=== PATIENT | female | born 2000 | race Caucasian/White ===

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

== ENCOUNTER 2022-06-03 11:25 | Outpatient (CLI) | payer MEDICAID, SELFPAY ==
--- NOTE | 2022-06-03 11:39 | XR_ITS ---
WS: [id number] EXAMINATION: XR foot RT 2V [id number] REASON FOR EXAM: RT FOOT PAIN COMPARISON: None available. ORDER DATE: 06/03/2022 11:39 AM X-RAY FINDINGS: There are no fractures or dislocations. No focal abnormal soft tissue swelling. Joint spaces are pres erved. XR/XR foot RT 2V [id number] IMPRESSION: No fractures or dislocations of the right foot.
== END 2022-06-03 11:26 | disposition home or self-care (01) ==
PROVIDERS: PCP Nurse Practitioner Family; Visit Provider Nurse Practitioner Family
DX: M79.671 Pain in right foot (principal)
CPT/HCPCS: 73620

== ENCOUNTER 2022-09-12 15:37 | Emergency (ER) | payer MEDICAID, SELFPAY ==
[2022-09-12 16:14] VITALS: BP 115/81; PULSE 94; RESP 16; TEMP 36.7; O2SAT 98; BMI 29.9
--- NOTE | 2022-09-12 16:25 | PC.PHAR ---
pt states she is only using the albuterol inhaler and ibu prn-ext shows [id number] one tab daily filled 08/24/22 28d/s pt states she hasnt taken for a month-ext also shows m-karma plus daily filled 08/24/22 30d/s pt states not taking-
--- NOTE | 2022-09-12 16:31 | CTR_ITS ---
PROCEDURE INFORMATION: Exam: CT Cervical Spine Without Contrast Exam date and time: 09/12/2022 4:44 PM Age: 21 years old Clinical indication: Injury or trauma; Fall; Blunt trauma; Additional info: Fall neck pain TECHNIQUE: Imaging protocol: Computed tomography of the cervical spine without contrast. Radiation optimization: All CT scans at this facility use at least one of these dose optimization techniques: automated exposure control; mA and/or kV adjustment per patient size (includes targeted exams where dose is matched to clinical indication); or iterative reconstruction. REPORTING DATA: Count of CT and Cardiac NM exams in prior 12 months: This patient has received 0 known CTs and 0 known cardiac nuclear medicine studies in the 12 months prior to the current study. COMPARISON: CR XR cervical spine 3V* [id number] 08/25/2019 7:38 PM RADIATION DOSE METRICS: Total DLP (mGy-cm): 152.7 FINDINGS: Bones/joints: No acute fracture. Near anatomic alignment. No severe spinal canal stenosis. Lungs: Lung apices are normal. Soft tissues: Unremarkable. CT/CT cervical spin wo con* [id number] IMPRESSION: No acute osseous injury.
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
[2022-09-12 17:53] VITALS: BP 115/81; PULSE 94; RESP 16; TEMP 36.7; O2SAT 98
== END 2022-09-12 17:55 | disposition home or self-care (01) ==
PROVIDERS: Emergency Provider Emergency Medicine; PCP Nurse Practitioner Family
DX: S00.83XA Contusion of other part of head, initial encounter (principal); S16.1XXA Strain of muscle, fascia and tendon at neck level, initial encounter; Z91.81 History of falling; Y93.11 Activity, swimming; Y92.34 Swimming pool (public) as the place of occurrence of the external cause; W16.522A Jumping or diving into swimming pool striking bottom causing other injury, initial encounter
CPT/HCPCS: 70486; 72125; 99284

== ENCOUNTER 2022-11-09 10:49 | Outpatient (CLI) | payer MEDICAID, SELFPAY ==
--- NOTE | 2022-11-09 11:03 | XR_ITS ---
WS: [id number] XR knee LT 3V* [id number] REASON FOR EXAM: LEFT KNEE PAIN, UNSPECIFIED CHRONICITY FINDINGS: No fracture or focal bone lesion. The joint spaces of the left knee are intact and well preserved. No soft tissue abnormality. IMPRESSION: No significant abnormality.
== END 2022-11-09 10:50 | disposition home or self-care (01) ==
PROVIDERS: PCP Nurse Practitioner Family; Visit Provider Nurse Practitioner Family
DX: M25.562 Pain in left knee (principal)
CPT/HCPCS: 73562

== ENCOUNTER 2023-02-19 19:07 | Emergency (ER) | payer MEDICAID, SELFPAY ==
--- NOTE | 2023-02-19 19:10 | XRR_ITS ---
PROCEDURE INFORMATION: Exam: XR Chest Exam date and time: 02/19/2023 7:19 PM Age: 22 years old Clinical indication: Prior surgery; Surgery date: 6+ months; Surgery type: Esophageal banding; Patient HX: Cough; Chest pain; Flushed; HX esophogeal banding TECHNIQUE: Imaging protocol: Radiologic exam of the chest. Views: 1 view. COMPARISON: CR XR chest 2V* [id number] 02/01/2019 7:16 PM FINDINGS: Lungs: Unremarkable. No consolidation. Pleural spaces: Unremarkable. No pleural effusion. No pneumothorax. Heart/Mediastinum: Unremarkable. No cardiomegaly. Bones/joints: Unremarkable. XR/XR chest 1V portable [id number] IMPRESSION: No acute findings.
--- NOTE | 2023-02-19 19:10 | ECG_ITS ---
[facility] Test Date: 2023-02-19 Pat Name: Joy Olivera Department: Room: Gender: Female Soa Integration Developer: : 2000 Requested By: Syed Keyes Order Number: [id number] Stephanie MD: Abel Graham M.D. Measurements Intervals [place] Rate: 80 P: 31 HI: 143 QRS: 35 QRSD: 82 T: 16 QT: 352 QTc: 408 Interpretive Statements SINUS RHYTHM No previous ECG available for comparison Electronically Signed On 02-20-2023 8:35:55 STEAM HAMMER OPERATOR by Abel Graham M.D. [id number]
[2023-02-19 19:41] VITALS: BP 134/89; PULSE 80; RESP 18; TEMP 36.6; O2SAT 98; BMI 32.8
--- NOTE | 2023-02-19 21:04 | W.ED.CHESTPA ---
HPI - Chest Pain General: Chief Complaint: Chest Pain Stated Complaint: chest pains Time Seen by Provider: 02/19/23 19:19 Source: patient Mode of arrival: ambulatory Limitations: no limitations History of Present Illness: 22-year-old female states she been having sharp chest pains in the center of her chest over the last week she states she also has had some shortness of breath. States the pain is worse with palpation along with deep breaths then. She had a slight cough denies any fevers denies any vomiting or diarrhea. Associated symptoms: Reports dyspnea; Deny abdominal pain, fever(s), nausea or vomiting Review of Systems Const: Denies: fever(s), chills, body aches or change in appetite ENMT: Denies: throat pain or dental pain Card: Reports: chest pain Resp: Reports: dyspnea GI: Denies: abdominal pain, nausea, vomiting or diarrhea : Denies: dysuria Musc: Denies: neck pain or back pain Skin/Breast: Denies: rash Neuro: Denies: headache(s) ON LICENSE OF [facility] ED Female Reproductive History: Date of last menstrual period: 02/02/23 Physical Exam Const: COMMON NORMALS: no acute distress, patient oriented x3 and healthy appearing HENMT: COMMON NORMALS: normocephalic and atraumatic HEAD & SCALP: normocephalic and atraumatic Eye: COMMON NORMALS: Equal, round and reactive pupils present and EOMs intact bilaterally PUPIL: Yes Equal, round and reactive pupils present Neck/C-Spine: COMMON NORMALS: full ROM and supple Chest: COMMONS NORMALS: normal inspection of the chest OTHER: point tender in center of chest Resp: COMMON NORMALS: normal respiratory effort, No retractions, No use of accessory muscles and clear to auscultation bilaterally AUSCULTATION: clear to auscultation bilaterally Cardio: COMMON NORMALS: regular rate, regular rhythm and No murmurs present (Cardio) RATE: regular rate RHYTHM: regular rhythm Extremity: COMMON NORMALS: normal to inspection and full ROM Neuro: COMMON NORMALS: patient oriented x3, moves all extremities and no focal motor deficits Psych: COMMON NORMALS: mental status grossly normal, Normal thought process present and cooperative THOUGHT PROCESS: Normal thought process present Skin: COMMON NORMALS: no rashes or lesions noted and no wounds GENERAL SKIN EXAM: no rashes or lesions noted Course Vital Signs: Vital signs: Vital Signs Temperature 98 F 02/19/23 19:41 Pulse Rate 80 02/19/23 19:41 Respiratory Rate 18 02/19/23 19:41 Blood Pressure 134/89 02/19/23 19:41 Pulse Oximetry 98 02/19/23 19:41 Oxygen Delivery Me thod Room Air 02/19/23 19:41 MDM - Chest Pain Medical Decision Making Patient presents for chest pain is likely chest wall pain she is point tender her troponin or D-dimer here is negative she does have a slight leukocytosis but has been on steroids likely causing this no signs of pneumonia on her x-ray she is stable for discharge she is follow-up with PCP and return if worsening Medical Records I reviewed the patient's medical records. Lab Data I reviewed the patient's lab results. 02/19/23 21:18 02/19/23 21:18 Radiology Impressions Chest X-Ray 02/19/23 19:10 IMPRESSION: No acute findings. Laboratory Results WBC 18.77 10^3/uL (4.5-13.0) H 02/19/23 21:18 RBC 4.21 10^6/uL (3.85-5.65) 02/19/23 21:18 Hgb 12.50 g/dL (12.4-14.8) 02/19/23 21:18 Hct 36.9 % (36-47) 02/19/23 21:18 MCV 87.6 fl (85-98) 02/19/23 21:18 MCH 29.7 pg (27-33) 02/19/23 21:18 MCHC 33.9 g/dL (30-55) 02/19/23 21:18 RDW 12.3 % (12.1-15.1) 02/19/23 21:18 Plt Count 316 10^3/cmm (157-399) 02/19/23 21:18 MPV 9.9 fL (7.4-10.4) 02/19/23 21:18 Neut % (Auto) 78.7 % 02/19/23 21:18 Lymph % (Auto) 13.8 % 02/19/23 21:18 [place] % (Auto) 6.2 % 02/19/23 21:18 Eos % (Auto) 0.3 % 02/19/23 21:18 Baso % (Auto) 0.3 % 02/19/23 21:18 Neut # (Auto) 14.79 10^3/uL (1.8-8.0) H 02/19/23 21:18 Lymph # (Auto) 2.6 10^3/uL (1.5-6.5) 02/19/23 21:18 [place] # (Auto) 1.2 10^3/uL (0.2-0.9) H 02/19/23 21:18 Eos # (Auto) 0.1 10^3/uL (0.0-0.8) 02/19/23 21:18 Baso # (Auto) 0.1 10^3/uL (0.0-0.1) 02/19/23 21:18 Nucleated RBC % (auto) 0 % 02/19/23 21:18 Nucleated RBCs # 0.0 /100WBC 02/19/23 21:18 D-Dimer <= 0.27 ug/mLFEU (0-0.59) 02/19/23 21:18 Sodium 140 mmol/L (136-145) 02/19/23 21:18 Potassium 3.9 mmol/L (3.5-5.1) 02/19/23 21:18 Chloride 107 mmol/L (98-107) 02/19/23 21:18 Carbon Dioxide 24 mmol/L (22-29) 02/19/23 21:18 Anion Gap 12.9 (5-19) 02/19/23 21:18 BUN 12 mg/dL (6-20) 02/19/23 21:18 Creatinine 0.6 mg/dL (0.5-0.9) 02/19/23 21:18 GFR Calculation 127.5 mL/min (90-130) 02/19/23 21:18 Glucose 97 mg/dL (65-115) 02/19/23 21:18 Calculated Osmolality 290 mOsm/kg (285-295) 02/19/23 21:18 Calcium 9.6 mg/dL (8.5-10.5) 02/19/23 21:18 Total Bilirubin 0.2 mg/dL (0.15-1.2) 02/19/23 21:18 AST 8 U/L (0-32) 02/19/23 21:18 ALT 10 U/L (0-33) 02/19/23 21:18 Alkaline Phosphatase 62 U/L (35-105) 02/19/23 21:18 Troponin T Baseline < 6 ng/L (0-10) 02/19/23 21:18 Total Protein 6.5 g/dL (6.6-8.7) L 02/19/23 21:18 Albumin 4.4 g/dL (3.5-5.2) 02/19/23 21:18 Globulin 2.1 g/dL (1.3-4.6) 02/19/23 21:18 All radiology interpretation(s) finalized by discharge EKG Data EKG 1: I personally reviewed and interpreted this EKG as follows: EKG interpretation date: 02/19/23 Discharge Plan Discharge Patient Disposition: Home Clinical Impression: Chest pain Qualifiers: Chest pain type: unspecified Qualified Code(s): R07.9 - Chest pain, unspecified Condition: Stable Prescriptions: No Action ibuprofen 800 mg Tablet 800 mg PO Q8H PRN (Reason: Pain) Ventolin HFA 90 mcg/actuation HFA aerosol inhaler 2 puff INHALATION QID PRN (Reason: Shortness Of Breath) Discharge Orders: Discharge ED (Routine); Ordered 02/19/23 Ordered By: Zhanna Ferreira Referrals: Ra,GEMMA Castellanos [Primary Care Provider] - Discharge Diet: Advance as tolerated Discharge Activity: Resume usual activity Patient Instructions: Chest Pain (ED) Coding Level of Care Code ED Petroleum Engineering Teacher for Gaviota Jamison
[2023-02-19 21:27] LABS: Basophils # 0.1 10^3/uL (0.0-0.1); Basophils % 0.3 %; Eosinophils # 0.1 10^3/uL (0.0-0.8); Eosinophils % 0.3 %; Hematocrit 36.9 % (36-47); Lymphocytes # 2.6 10^3/uL (1.5-6.5); Lymphocytes % 13.8 %; Mean Corpuscular HGB Conc 33.9 g/dL (30-55); Mean Corpuscular Hemoglobin 29.7 pg (27-33); Mean Corpuscular Volume 87.6 fl (85-98); Mean Platelet Volume 9.9 fL (7.4-10.4); Monocytes # 1.2 10^3/uL (0.2-0.9); Monocytes % 6.2 %; Neutrophils # 14.79 10^3/uL (1.8-8.0); Neutrophils % 78.7 %; Nucleated Red Blood Cells % 0 %; Platelet Count 316 10^3/cmm (157-399); Red Blood Count 4.21 10^6/uL (3.85-5.65); Red Cell Distribution Width 12.3 % (12.1-15.1); White Blood Count 18.77 10^3/uL (4.5-13.0)
[2023-02-19 21:49] LABS: D Dimer <= 0.27 ug/mLFEU (0-0.59)
[2023-02-19 21:51] LABS: Troponin(5th) Baseline < 6 ng/L (0-10)
[2023-02-19 21:53] LABS: Alanine Aminotransferase 10 U/L (0-33); Albumin Level 4.4 g/dL (3.5-5.2); Alkaline Phosphatase 62 U/L (35-105); Anion Gap 12.9 (5-19); Aspartate Amino Transferase 8 U/L (0-32); Blood Urea Nitrogen 12 mg/dL (6-20); Calcium 9.6 mg/dL (8.5-10.5); Carbon Dioxide 24 mmol/L (22-29); Chloride 107 mmol/L (98-107); Globulin 2.1 g/dL (1.3-4.6); Glomerular Filtration Rate 127.5 mL/min (90-130); Glucose 97 mg/dL (65-115); Osmolality Calculated 290 mOsm/kg (285-295); Potassium 3.9 mmol/L (3.5-5.1); Sodium 140 mmol/L (136-145); Total Bilirubin 0.2 mg/dL (0.15-1.2); Total Protein 6.5 g/dL (6.6-8.7)
--- NOTE | 2023-02-19 21:58 | ECG_ITS ---
[facility] Test Date: 2023-02-19 Pat Name: Joy Olivera Department: Room: Gender: Female Anesthesia Attending: : 2000 Requested By: Zhanna Ferreira Order Number: [id number] Stephanie MD: Abel Graham M.D. Measurements Intervals [place] Rate: 65 P: 22 NM: 154 QRS: 31 QRSD: 87 T: 14 QT: 376 QTc: 393 Interpretive Statements SINUS RHYTHM WITH SINUS ARRHYTHMIA Compared to ECG 02/19/2023 19:24:01 No significant changes Electronically Signed On 02-20-2023 8:35:47 HOSTEL PARENT by Abel Graham M.D. [id number]
[2023-02-19] MEDS: ketorolac 30 mg/mL INJ 15 MG IVP (22:01)
[2023-02-19 22:14] VITALS: BP 134/89; PULSE 80; RESP 18; TEMP 36.6; O2SAT 98
== END 2023-02-19 22:15 | disposition home or self-care (01) ==
PROVIDERS: Emergency Provider Emergency Medicine; PCP Nurse Practitioner Family
DX: R07.9 Chest pain, unspecified (principal)
CPT/HCPCS: 36415; 71045; 80053; 84484; 85025; 85378; 93005; 96374; 99285; J1885

== ENCOUNTER 2023-04-23 18:49 | Emergency (ER) | payer MEDICAID, SELFPAY ==
[2023-04-23 18:56] VITALS: BP 124/73; PULSE 93; RESP 16; TEMP 36.7; O2SAT 95; BMI 29.9
--- NOTE | 2023-04-23 19:18 | W.ED.SKABFB ---
HPI - Skin/Abscess/Foreign Bdy General: Chief complaint: Skin/Abscess/Foreign Body Stated complaint: boil on backside Time Seen by Provider: 04/23/23 19:12 History of Present Illness: 22-year-old female comes in today with some anal tenderness. Patient had a similar event about 1 month ago and was treated with a antibiotic and hemorrhoid cream. Patient did report some improvement and has been off antibiotics for about 1 week but has noticed increased swelling and tenderness to the left perianal area. Patient denies constipation. Patient denies fever or chills. Patient reports no blood in stool. Review of Systems General: Reports: 10 or more systems reviewed and unremarkable except in HPI and below GI: Reports: rectal pain [facility] ED Female Reproductive History: Date of last menstrual period: 04/04/23 Physical Exam Const: COMMON NORMALS: alert HENMT: COMMON NORMALS: normocephalic HEAD & SCALP: normocephalic Neck/C-Spine: COMMON NORMALS: full ROM Resp: COMMON NORMALS: normal respiratory effort and clear to auscultation bilaterally AUSCULTATION: clear to auscultation bilaterally Cardio: COMMON NORMALS: regular rate RATE: regular rate GI: COMMON NORMALS: Soft to palpation PALPATION: Yes Soft to palpation RECTAL EXAM: mass (Approximately 1-2 cm tender swelling left perirectal) Extremity: COMMON NORMALS: full ROM Neuro: SENSORIUM/ORIENTATION: Yes alert Skin: COMMON NORMALS: turgor normal GENERAL SKIN EXAM: turgor normal Course Vital Signs: Vital signs: Vital Signs Temperature 98.1 F 04/23/23 18:56 Pulse Rate 93 04/23/23 18:56 Respiratory Rate 16 04/23/23 18:56 Blood Pressure 124/73 04/23/23 18:56 Pulse Oximetry 95 04/23/23 18:56 Oxygen Delivery Me thod Room Air 04/23/23 18:56 MDM - Skin/Abscess/Foreign Bdy Medicial Decision Making 22-year-old female comes in today with a tender swelling to the left perirectal area. On exam we note a 1 to 2 cm area of tenderness with a palpable mass/nodule in the perirectal area. No significant redness or induration is noted. Vital signs are normal. Differential diagnosis includes anal rectal abscess, internal hemorrhoid, anal gland occlusion, anal fistula. Will go ahead and start patient back on some Bactrim to cover for infection. Patient was also will follow-up with surgeon for further evaluation and treatment. Patient agreed to plan of care and need for follow-up appointment. No radiology studies performed this visit Discharge Plan Discharge Patient Disposition: Home Clinical Impression: Anorectal abscess Condition: Stable Prescriptions: New sulfamethoxazole-trimethoprim 800-160 mg tablet 1 tab PO Q12H 10 Days Qty: 20 0RF No Action ibuprofen 800 mg Tablet 800 mg PO Q8H PRN (Reason: Pain) Ventolin HFA 90 mcg/actuation HFA aerosol inhaler 2 puff INHALATION QID PRN (Reason: Shortness Of Breath) Discharge Orders: Discharge ED (Routine); Ordered 04/23/23 Ordered By: Freddy Casillas Referrals: Jasmin Knapp APN [Primary Care Provider] - Discharge Diet: Usual diet Discharge Activity: Increase activity as tolerated Patient Instructions: Anorectal Abscess and Anal Fistula (ED) Activity Restrictions/Additional Instructions: Drink plenty of water and fluids. Avoid constipation. Use a stool softener and drink plenty of liquids to help with the avoidance of constipation. Avoid sitting on the toilet for prolonged periods of time. Monitor site for increased redness and tenderness. Follow-up with primary care. Case management should contact you within the next week for follow-up with surgeon for further evaluation and treatment. Return to ER for worsening symptoms such as high fever, increasing redness and swelling of the area, or severe pain. Coding Level of Care Code ED [employer] Account Executive for Gaviota Jamison
[2023-04-23] MEDS: sulfamethoxazole-trimeth DS 160-800 mg Tablet 1 TAB PO (19:42)
[2023-04-23 19:43] VITALS: BP 124/73; PULSE 93; RESP 16; TEMP 36.7; O2SAT 95
--- NOTE | 2023-04-24 09:57 | DCPLANNER ---
A message was sent to general surgery on 04/24/23 at 0958,.Clinic to contact the patient for appt.
== END 2023-04-23 19:43 | disposition home or self-care (01) ==
PROVIDERS: Emergency Provider Nurse Practitioner Family; PCP Nurse Practitioner Family
DX: K61.2 Anorectal abscess (principal)
CPT/HCPCS: 99283

== ENCOUNTER 2023-04-25 06:22 | Observation (INO) | payer MEDICAID, SELFPAY ==
[2023-04-25] VITALS (16 sets, daily range): BP systolic 76–99; BP diastolic 47–67; PULSE 92–109; RESP 9–21; TEMP 36.3–36.6; O2SAT 92–96; BMI 29.9
--- NOTE | 2023-04-25 06:45 | W.ED.WOUNDLC ---
HPI - Wound/Laceration General: Chief Complaint: Wound/Laceration Stated Complaint: pain on bottom Time Seen by Provider: 04/25/23 06:36 Source: patient Mode of arrival: ambulatory History of Present Illness: 22-year-old female presents emergency room with perineal abscess. Patient was seen 2 days ago was perineal abscess started on Bactrim. It has been present for several weeks evidently she has seen her primary care doctor as well initially treated with hemorrhoid cream to extending into the left buttock. She denies any fever sweats or chills has been increasingly painful difficulty even to lay or sit on. She has been taking the Bactrim that was started 2 days ago. Onset (ago): day(s) Associated symptoms: Denies chills or fever(s) Review of Systems Const: Denies: fever(s) or chills Card: Denies: chest pain Resp: Denies: dyspnea GI: Denies: abdominal pain : Denies: dysuria, urinary frequency or urinary urgency Musc: Denies: neck pain or back pain Skin/Breast: Denies: rash Physical Exam Const: COMMON NORMALS: no acute distress GENERAL APPEARANCE: cooperative and comfortable ORIENTATION/CONSCIOUSNESS: Yes awake, Yes oriented to person, Yes oriented to place and Yes oriented to time HENMT: COMMON NORMALS: normocephalic, atraumatic and hearing grossly normal bilaterally HEAD & SCALP: normocephalic and atraumatic Resp: COMMON NORMALS: normal respiratory effort, No retractions, No use of accessory muscles and clear to auscultation bilaterally AUSCULTATION: clear to auscultation bilaterally Cardio: COMMON NORMALS: regular rate, regular rhythm and No murmurs present (Cardio) RATE: regular rate RHYTHM: regular rhythm GI: COMMON NORMALS: Soft to palpation and No hepatosplenomegaly present AUSCULTATION: Yes normoactive bowel sounds PALPATION: Yes Soft to palpation, No Tenderness to palpation present (GI), No Guarding due to palpation present (GI) and Yes No hepatosplenomegaly present Back/Pelvis: OTHER: Left-sided gluteal cleft there is a large palpable fluctuant cyst extremely tender with overlying erythema Extremity: COMMON NORMALS: normal to inspection, capillary refill normal, no clubbing, cyanosis or edema, no calf tenderness and no pedal edema Neuro: SENSORIUM/ORIENTATION: Yes oriented to person, Yes oriented to place and Yes oriented to time Skin: COMMON NORMALS: no rashes or lesions noted GENERAL SKIN EXAM: no rashes or lesions noted Course Vital Signs: Vital signs: Vital Signs Temperature 98.3 F 04/27/23 11:25 Pulse Rate 85 04/27/23 11:25 Respiratory Rate 18 04/27/23 11:25 Blood Pressure 92/59 04/27/23 11:25 Pulse Oximetry 97 04/27/23 11:25 Oxygen Delivery Me thod Room Air 04/27/23 07:19 MDM - Wound/Laceration Medical Decision Making CT shows sizable abscess in the area with physical exam findings. Will admit to surgery for incision and drainage. Patient admitted n.p.o. IV fluids pain medications. Medical Records I reviewed the patient's medical records. Lab Data I reviewed the patient's lab results. 04/27/23 05:09 04/27/23 05:09 Laboratory Results WBC 17.84 10^3/uL (4.5-13.0) H 04/25/23 07:00 RBC 3.79 10^6/uL (3.85-5.65) L 04/25/23 07:00 Hgb 11.10 g/dL (12.4-14.8) L 04/25/23 07:00 Hct 32.4 % (36-47) L 04/25/23 07:00 MCV 85.5 fl (85-98) 04/25/23 07:00 MCH 29.3 pg (27-33) 04/25/23 07:00 MCHC 34.3 g/dL (30-55) 04/25/23 07:00 RDW 12.8 % (12.1-15.1) 04/25/23 07:00 Plt Count 209 10^3/cmm (157-399) 04/25/23 07:00 MPV 9.6 fL (7.4-10.4) 04/25/23 07:00 Neut % (Auto) 69.0 % 04/25/23 07:00 Lymph % (Auto) 18.8 % 04/25/23 07:00 [place] % (Auto) 8.5 % 04/25/23 07:00 Eos % (Auto) 0.4 % 04/25/23 07:00 Baso % (Auto) 0.2 % 04/25/23 07:00 Neut # (Auto) 12.31 10^3/uL (1.8-8.0) H 04/25/23 07:00 Lymph # (Auto) 3.4 10^3/uL (1.5-6.5) 04/25/23 07:00 [place] # (Auto) 1.5 10^3/uL (0.2-0.9) H 04/25/23 07:00 Eos # (Auto) 0.1 10^3/uL (0.0-0.8) 04/25/23 07:00 Baso # (Auto) 0.0 10^3/uL (0.0-0.1) 04/25/23 07:00 Nucleated RBC % (auto) 0 % 04/25/23 07:00 Nucleated RBCs # 0.0 /100WBC 04/25/23 07:00 Sodium 137 mmol/L (136-145) 04/25/23 07:00 Potassium 3.4 mmol/L (3.5-5.1) L 04/25/23 07:00 Chloride 103 mmol/L (98-107) 04/25/23 07:00 Carbon Dioxide 22 mmol/L (22-29) 04/25/23 07:00 Anion Gap 15.4 (5-19) 04/25/23 07:00 BUN 8 mg/dL (6-20) 04/25/23 07:00 Creatinine 0.6 mg/dL (0.5-0.9) 04/25/23 07:00 GFR Calculation 127.5 mL/min (90-130) 04/25/23 07:00 Glucose 96 mg/dL (65-115) 04/25/23 07:00 Calculated Osmolality 282 mOsm/kg (285-295) L 04/25/23 07:00 Calcium 7.6 mg/dL (8.5-10.5) L 04/25/23 07:00 Total Bilirubin 0.3 mg/dL (0.15-1.2) 04/25/23 07:00 AST 5 U/L (0-32) 04/25/23 07:00 ALT 9 U/L (0-33) 04/25/23 07:00 Alkaline Phosphatase 59 U/L (35-105) 04/25/23 07:00 Total Protein 5.7 g/dL (6.6-8.7) L 04/25/23 07:00 Albumin 3.3 g/dL (3.5-5.2) L 04/25/23 07:00 Globulin 2.4 g/dL (1.3-4.6) 04/25/23 07:00 HCG, Qual Negative (Negative) 04/25/23 07:00 All radiology interpretation(s) finalized by discharge Discharge Plan Discharge Patient Disposition: Admitted As Inpatient Admit Provider: Lance Carter Clinical Impression: Perirectal abscess Condition: Stable Discharge Diet: Advance as tolerated Discharge Activity: Resume usual activity Coding Level of Care Code ED Multifold Operator for Gaviota Jamison
--- NOTE | 2023-04-25 06:55 | CT_ITS ---
WS: [id number] CT pelvis TECHNIQUE: Contrast-enhanced CT of the pelvis with coronal and sagittal reformatted images. CLINICAL INFORMATION: perineal abscess - extends to the L buttock COMPARISON: None. DLP: 636.[address] scans at [facility] use at least one of these dose optimization techniques: automated e xposure control; mA and/or kV adjustment per patient size (includes targeted exams where dose is matc hed to clinical indication); or iterative reconstruction. FINDINGS: Peripherally enhancing LEFT perineal abscess. This measures approximately 7.1 x 2.5 x 5.7 cm AP by tr ansverse by craniocaudal. Associated peripheral enhancement. A few locules of internal air. This exte nds along the LEFT perineum with inflammatory stranding and edema. Suggestion of a small fistulous co nnection to the anus, coronal imaging series 6 image 33 and axial imaging series 3 image 48. Peripheral enhancing LEFT corpus luteum cyst measuring 2.1 cm. Small amount of free fluid in the cul- de-sac. A few sigmoid diverticuli. IMPRESSION: Peripheral enhancing LEFT perineal abscess described above with fistulous connection to the anus. Notified Ralf Guzman DO at 04/25/2023 8:38 AM.
[2023-04-25 07:14] LABS: Basophils % 0.2 %; Eosinophils # 0.1 10^3/uL (0.0-0.8); Eosinophils % 0.4 %; Hematocrit 32.4 % (36-47); Lymphocytes # 3.4 10^3/uL (1.5-6.5); Lymphocytes % 18.8 %; Mean Corpuscular HGB Conc 34.3 g/dL (30-55); Mean Corpuscular Hemoglobin 29.3 pg (27-33); Mean Corpuscular Volume 85.5 fl (85-98); Mean Platelet Volume 9.6 fL (7.4-10.4); Monocytes # 1.5 10^3/uL (0.2-0.9); Monocytes % 8.5 %; Neutrophils # 12.31 10^3/uL (1.8-8.0); Nucleated Red Blood Cells % 0 %; Platelet Count 209 10^3/cmm (157-399); Red Blood Count 3.79 10^6/uL (3.85-5.65); Red Cell Distribution Width 12.8 % (12.1-15.1); White Blood Count 17.84 10^3/uL (4.5-13.0)
[2023-04-25 07:31] LABS: HCG, Serum Qual Negative (Negative)
[2023-04-25 07:32] LABS: Alanine Aminotransferase 9 U/L (0-33); Albumin Level 3.3 g/dL (3.5-5.2); Alkaline Phosphatase 59 U/L (35-105); Anion Gap 15.4 (5-19); Aspartate Amino Transferase 5 U/L (0-32); Blood Urea Nitrogen 8 mg/dL (6-20); Calcium 7.6 mg/dL (8.5-10.5); Carbon Dioxide 22 mmol/L (22-29); Chloride 103 mmol/L (98-107); Creatinine Clr Calc Pharmacy 157.8611; Globulin 2.4 g/dL (1.3-4.6); Glomerular Filtration Rate 127.5 mL/min (90-130); Glucose 96 mg/dL (65-115); Osmolality Calculated 282 mOsm/kg (285-295); Potassium 3.4 mmol/L (3.5-5.1); Sodium 137 mmol/L (136-145); Total Bilirubin 0.3 mg/dL (0.15-1.2); Total Protein 5.7 g/dL (6.6-8.7)
[2023-04-25] MEDS: iohexol 350 mg/mL 500 mL Btl (per mL) IV (08:01)
[2023-04-25] MEDS: piperacillin-tazobactam 4.5 GM in sodium chloride 0.9% (plus) 50 ML IV ×2 (08:28→17:09)
--- NOTE | 2023-04-25 10:23 | P.HP_ITS ---
Providers/Chief Complaint 2 Primary Care Provider: Jasmin Knapp APN Chief Complaint: pain on bottom History of Present Illness Joy Olivera is a 22 year old female who presented to the hospital after 6- week history of pain swelling and then drainage of her left buttock. The pain is sharp and constant. Patient makes pain worse. Nothing makes pain better. The pain does not radiate. She denies any fever, chills, nausea, emesis, diarrhea, constipation, hematochezia and/or melena. CT shows a perirectal abscess. Review of Systems 2 General: Reports: 10 or more systems reviewed and unremarkable except in HPI and below Medications/Allergies Home Medications Medication Instructions Recorded Confirmed Last Taken Type ibuprofen 800 mg tablet 800 mg PO Q8H PRN Pain 09/12/22 04/25/23 04/25/23 History sulfamethoxazole 800 1 tab PO Q12H 10 days #20 tabs 04/23/23 04/25/23 04/24/23 Rx mg-trimethoprim 160 mg tablet albuterol sulfate 2.5 mg/3 mL 3 mg inhalation QID PRN Shortness 04/25/23 04/25/23 4 Days Ago History (0.083 %) solution for nebulization Of Breath ~04/21/23 albuterol sulfate 90 mcg/actuation 2 puff inhalation QID shortness of 04/25/23 04/25/23 4 Days Ago History aerosol inhaler (Ventolin HFA) breath ~04/21/23 codeine 10 mg-guaifenesin 100 mg/5 10 ml PO Q4H PRN Cough 04/25/23 04/25/23 04/24/23 History mL oral liquid Allergies Allergy/AdvReac Type Severity Reaction Status Date / Time Cephalosporins Allergy ALGY-Hives Verified 04/25/23 10:19 Vitals/I&O/Wt Last Vital Signs Temp 97.6 F 04/25/23 06:34 Pulse 97 04/25/23 06:34 Resp 16 04/25/23 07:02 BP 99/66 04/25/23 07:02 Pulse Ox 93 04/25/23 10:00 O2 Del Method Room Air 04/25/23 10:00 Weight last 48 hrs Weight 180 lb Physical Exam 2 Narrative: General : Patient is well developed , no acute distress, oriented x3 Head : Normal cephalic, a-traumatic. Ears : Pinnae and external canal are normal. Hearing is normal. Eyes : PERRLA, Sclera and injection are normal. No conjunctival discharge. Nose : Mucous membranes are without erythema. Throat : buccal mucosa is normal, gums are without significant recession or hypertrophy. Lungs : Equal chest rise bilaterally, no use of accessory muscles, trachea is midline. Cor : Rate and rhythm are normal. Abdomen : Soft, ND, NT, no g/r/m Skin: There is a perirectal abscess with an opening draining purulence on the left buttock. There is induration fluctuance and erythema Extremities : No edema, no cyanosis or clubbing, dorsalis pedis pulses are present bilaterally, non-tender to palpation of calves. Upper extremities are normal bilaterally. Back : non-tender to palpation, no CVA tenderness. Neuro : CN II - XII intact, Upper and lower extremities have equal and full strength Data 04/25/23 07:00 04/25/23 07:00 Micro: Microbiology 04/25/23 07:34 Blood Culture - Preliminary Blood SPECIMEN COLLECTED 04/25/23 07:34 Blood Culture - Preliminary Blood SPECIMEN COLLECTED A&P Assessment and plan (1) Perirectal abscess: Plan Incision and drainage of perirectal abscess The risk and benefits of procedure, including but limited to, bleeding, continued infection, recurrence, scar, numbness, pain, damage to surrounding structures, were explained to the patient. She understand the risks and wishes to proceed. Admit to observation See orders Attestations 2 Medical Necessity Statement*: She will likely stay just 1 night for IV antibiotics and packing change in the morning Coding Level of Care Code 62802 Diagnoses Perirectal abscess K61.1
--- NOTE | 2023-04-25 10:43 | P.ANESASSM_ITS ---
Pre-Anesthetic Assessment Height/Weight: Height 1.65 m Weight 81.647 kg Temp Pulse Resp BP Pulse Ox O2 Del Method 97.9 F 109 H 18 97/67 96 Room Air 04/25/23 10:28 04/25/23 10:28 04/25/23 10:28 04/25/23 10:28 04/25/23 10:28 04/25/23 10:28 Preop Diagnosis: Perirectal abscess Operation Date: 04/25/23 14:50 Proposed Procedures p Perirectal Abscess Incision And Drainage(Not Applicable) - Lance Carter DO Last intake: Intake Last Liquid Date 04/25/23 Last Liquid Time 04:00 Last Solid Date 04/24/23 Last Solid Time 20:00 Social No alcohol and No tobacco Airway Submandibular: within normal limits Cervical ROM: within normal limits Mallampati: Class I Pulmonary Asthma Anesthetic Plan ASA status: 2 Anesthesia: General Risk of > 500 ml blood loss (7ml/kg in children): No Medications/Allergies Home Medications Medication Instructions Recorded Confirmed Last Taken Type ibuprofen 800 mg tablet 800 mg PO Q8H PRN Pain 09/12/22 04/25/23 04/25/23 History sulfamethoxazole 800 1 tab PO Q12H 10 days #20 tabs 04/23/23 04/25/23 04/24/23 Rx mg-trimethoprim 160 mg tablet albuterol sulfate 2.5 mg/3 mL 3 mg inhalation QID PRN Shortness 04/25/23 04/25/23 4 Days Ago History (0.083 %) solution for nebulization Of Breath ~04/21/23 albuterol sulfate 90 mcg/actuation 2 puff inhalation QID shortness of 04/25/23 04/25/23 4 Days Ago History aerosol inhaler (Ventolin HFA) breath ~04/21/23 codeine 10 mg-guaifenesin 100 mg/5 10 ml PO Q4H PRN Cough 04/25/23 04/25/23 04/24/23 History mL oral liquid Allergies Allergy/AdvReac Type Severity Reaction Status Date / Time Cephalosporins Allergy ALGY-Hives Verified 04/25/23 10:19 Data Anesthesia 04/25/23 07:00 04/25/23 07:00 Short CBC 04/25/23 Range/Units 07:00 WBC 17.84 H (4.5-13.0) 10^3/uL Hgb 11.10 L (12.4-14.8) g/dL Hct 32.4 L (36-47) % MCV 85.5 (85-98) fl Plt Count 209 (157-399) 10^3/cmm Neut % (Auto) 69.0 % Neut # (Auto) 12.31 H (1.8-8.0) 10^3/uL BMP 04/25/23 07:00 Sodium 137 Potassium 3.4 L Chloride 103 Carbon Dioxide 22 BUN 8 Creatinine 0.6 Glucose 96 Calcium 7.6 L Liver Function 04/25/23 Range/Units 07:00 Total Bilirubin 0.3 (0.15-1.2) mg/dL AST 5 (0-32) U/L ALT 9 (0-33) U/L Alkaline Phosphatase 59 (35-105) U/L Albumin 3.3 L (3.5-5.2) g/dL Microbiology 04/25/23 07:34 Blood Culture - Preliminary Blood SPECIMEN COLLECTED 04/25/23 07:34 Blood Culture - Preliminary Blood SPECIMEN COLLECTED Cardiac Studies: 2 No Data to Display
[2023-04-25] MEDS: lidocaine-epi 2% PF 1:200,000 20 mL SDV XX (11:25)
--- NOTE | 2023-04-25 11:46 | P.OP_ITS ---
Operative Report Date of procedure: April 25, 2023 Pre-op diagnosis: Perirectal abscess Post-op diagnosis: same Procedure done: Incision and drainage of perirectal abscess Implants: Half-inch iodoform packing gauze Specimens removed/disposition: Cultures Surgeon: Lance Carter DO Anesthesia: General and Local Estimated blood loss (mL): 5 Complications: None apparent Brief History: This is a very pleasant 22-year-old female who presented to the hospital with 6- week history of perirectal pain. She was diagnosed with perirectal abscess. Incision and drainage of perirectal abscess was indicated. The risks and benefits were explained and documented. Procedure: Patient was wheeled nonverbal and laid remained on the hospital bed in the supine position. An LMA and general anesthesia was achieved by the department anesthesia. Patient was placed in the left lateral decubitus position. The gluteal area and anus were inspected prepped and draped in usual sterile fashion. A timeout was performed. All present were in agreement. The area of most fluctuance was left anterior of the anus. 2% lidocaine with epinephrine was used to anesthetize the skin over this area. A 15 blade scalpel was used to make a 1 cm incision through the epidermis and dermis. Hemostats were used to probe to deeper tissues until a very significant amount of foul-smelling purulent material was expelled. Cultures were obtained. Abscess cavities were probed and broken with hemostats. Abscess cavity was then irrigated with normal saline until clear. Half inch added from packing gauze was packed tight into the abscess cavity. Sterile bandage was applied. Patient tolerated procedure well.
--- NOTE | 2023-04-25 12:08 | PC.NURSE ---
1205 - notified anesthesia with blood pressures from pacu - FREEMAN Villalba at side to assess pt - verbalizes pt ok to move to Phase 2 advised staff to remain with pt when up - outpt nurse and pt verbalizes understanding
[2023-04-25] MEDS: ondansetron 2 mg/ML SDV 2 mL 4 MG IVP (12:37)
--- NOTE | 2023-04-25 12:40 | PC.NURSE ---
Pt with some nausea. Dr Fernández ordered Zofran IVP 4 mg x 1. Anes also aware of BP 88/65, no new orders at this time.
[2023-04-25] MEDS: ketorolac 30 mg/mL INJ IVP ×2 (14:25→20:26)
[2023-04-25] MEDS: D5-NS 0.45% + KCL 20 mEq 20 MEQ/1,000 ML BAG 100 MEQ IV ×2 (14:57→23:12)
--- NOTE | 2023-04-25 15:51 | ANE.PACU2 ---
Inpatient post-anesthesia follow up: Vital signs: Temperature 97.8 F Pulse Rate 93 Respiratory Rate 16 Blood Pressure 94/66 Pulse Oximetry 96 Oxygen Delivery Me thod Room Air Oxygen Flow Rate Fraction of Inspir ed Oxygen Additional Comments: no apparent anesthetic complications noted
--- NOTE | 2023-04-25 16:06 | P.ANESASSM_ITS ---
Pre-Anesthetic Assessment Height/Weight: Height 1.65 m Weight 81.647 kg Temp Pulse Resp BP Pulse Ox O2 Del Method 97.8 F 93 16 94/66 96 Room Air 04/25/23 15:36 04/25/23 15:36 04/25/23 15:36 04/25/23 15:36 04/25/23 15:36 04/25/23 15:36 Preop Diagnosis: Perirectal abscess Operation Date: 04/25/23 14:50 Proposed Procedures p Perirectal Abscess Incision And Drainage(Not Applicable) - Lance Carter DO Last intake: Intake Last Liquid Date 04/25/23 Last Liquid Time 04:00 Last Solid Date 04/24/23 Last Solid Time 20:00 Airway Submandibular: within normal limits Cervical ROM: within normal limits Mallampati: Class I Anesthetic Plan ASA status: 2 Anesthesia: General Medications/Allergies Home Medications Medication Instructions Recorded Confirmed Last Taken Type ibuprofen 800 mg tablet 800 mg PO Q8H PRN Pain 09/12/22 04/25/23 04/25/23 History sulfamethoxazole 800 1 tab PO Q12H 10 days #20 tabs 04/23/23 04/25/23 04/24/23 Rx mg-trimethoprim 160 mg tablet albuterol sulfate 2.5 mg/3 mL 3 mg inhalation QID PRN Shortness 04/25/23 04/25/23 4 Days Ago History (0.083 %) solution for nebulization Of Breath ~04/21/23 albuterol sulfate 90 mcg/actuation 2 puff inhalation QID shortness of 04/25/23 04/25/23 4 Days Ago History aerosol inhaler (Ventolin HFA) breath ~04/21/23 codeine 10 mg-guaifenesin 100 mg/5 10 ml PO Q4H PRN Cough 04/25/23 04/25/23 04/24/23 History mL oral liquid Allergies Allergy/AdvReac Type Severity Reaction Status Date / Time Cephalosporins Allergy ALGY-Hives Verified 04/25/23 10:19 Current Medications Generic Name Dose Route Start Last Admin Trade Name Freq PRN Reason Stop Dose Admin Sodium Chloride 1,000 mls @ 30 mls/hr 04/25/23 12:45 04/25/23 13:53 Sodium Chloride 0.9% IV 04/26/23 12:44 Not Given .Q24H OLIVIA Potassium Chloride/Dextrose/Sod Cl 20 meq in 1,000 mls @ 100 mls/hr 04/25/23 13:46 04/25/23 14:57 D5-Ns 0.45% + Kcl 20 Meq IV 100 mls/hr .Q10H OLIVIA Administration Ketorolac Tromethamine 30 mg 04/25/23 13:46 04/25/23 14:25 Ketorolac 30 Mg/Ml Inj IVP 04/28/23 13:45 30 mg Q6H OLIVIA Administration PFSH Anesthesia Female Reproductive History Date of last menstrual period: 04/04/23 Data Anesthesia 04/25/23 07:00 04/25/23 07:00 Short CBC 04/25/23 Range/Units 07:00 WBC 17.84 H (4.5-13.0) 10^3/uL Hgb 11.10 L (12.4-14.8) g/dL Hct 32.4 L (36-47) % MCV 85.5 (85-98) fl Plt Count 209 (157-399) 10^3/cmm Neut % (Auto) 69.0 % Neut # (Auto) 12.31 H (1.8-8.0) 10^3/uL BMP 04/25/23 07:00 Sodium 137 Potassium 3.4 L Chloride 103 Carbon Dioxide 22 BUN 8 Creatinine 0.6 Glucose 96 Calcium 7.6 L Liver Function 04/25/23 Range/Units 07:00 Total Bilirubin 0.3 (0.15-1.2) mg/dL AST 5 (0-32) U/L ALT 9 (0-33) U/L Alkaline Phosphatase 59 (35-105) U/L Albumin 3.3 L (3.5-5.2) g/dL Microbiology 04/25/23 07:34 Blood Culture - Preliminary Blood SPECIMEN COLLECTED 04/25/23 07:34 Blood Culture - Preliminary Blood SPECIMEN COLLECTED Cardiac Studies: 2 No Data to Display
[2023-04-25] MEDS: docusate sodium 100 mg Capsule PO (17:19)
[2023-04-26] VITALS (7 sets, daily range): BP systolic 87–107; BP diastolic 55–72; PULSE 70–87; RESP 16–18; TEMP 36.4–36.6; O2SAT 95–98
[2023-04-26] MEDS: piperacillin-tazobactam 4.5 GM in sodium chloride 0.9% (plus) 50 ML IV ×4 (00:05→23:56)
[2023-04-26] MEDS: ketorolac 30 mg/mL INJ IVP ×4 (02:12→20:17)
[2023-04-26 05:16] LABS: Basophils % 0.1 %; Hematocrit 34.4 % (36-47); Lymphocytes # 1.7 10^3/uL (1.5-6.5); Lymphocytes % 5.9 %; Mean Corpuscular HGB Conc 32.8 g/dL (30-55); Mean Corpuscular Hemoglobin 29.4 pg (27-33); Mean Corpuscular Volume 89.4 fl (85-98); Monocytes # 0.9 10^3/uL (0.2-0.9); Monocytes % 2.9 %; Neutrophils # 26.31 10^3/uL (1.8-8.0); Neutrophils % 89.3 %; Nucleated Red Blood Cells % 0 %; Platelet Count 304 10^3/cmm (157-399); Red Blood Count 3.85 10^6/uL (3.85-5.65); Red Cell Distribution Width 12.4 % (12.1-15.1); White Blood Count 29.46 10^3/uL (4.5-13.0)
[2023-04-26 05:55] LABS: Anion Gap 13.2 (5-19); Blood Urea Nitrogen 8 mg/dL (6-20); Calcium 8.2 mg/dL (8.5-10.5); Carbon Dioxide 22 mmol/L (22-29); Chloride 106 mmol/L (98-107); Creatinine Clr Calc Pharmacy 247.9719; Glomerular Filtration Rate 203.5 mL/min (90-130); Glucose 157 mg/dL (65-115); Magnesium 2.2 mg/dL (1.7-2.3); Osmolality Calculated 286 mOsm/kg (285-295); Potassium 4.2 mmol/L (3.5-5.1); Sodium 137 mmol/L (136-145)
[2023-04-26] MEDS: docusate sodium 100 mg Capsule PO ×2 (08:13→17:15)
[2023-04-26] MEDS: D5-NS 0.45% + KCL 20 mEq 20 MEQ/1,000 ML BAG 100 MEQ IV ×2 (08:22→19:03)
[2023-04-26] MEDS: oxyCODONE-APAP 5-325 mg Tablet 1 TAB PO (10:47)
--- NOTE | 2023-04-26 14:40 | P.PN_ITS ---
Subjective 2 Subjective: Patient seen and examined. Pain controlled Vitals/I&O/Wt Last Vital Signs Temp 98.3 F 04/27/23 07:19 Pulse 85 04/27/23 07:19 Resp 17 04/27/23 07:19 BP 92/59 04/27/23 07:19 Pulse Ox 97 04/27/23 07:19 O2 Del Method Room Air 04/27/23 07:19 04/26/23 04/27/23 04/27/23 22:59 06:59 14:59 Intake Total 1640 / 3086.667 1045 / 4131.667 Balance 1640 / 3086.667 1045 / 4131.667 Weight last 48 hrs Weight 204 lb 11.2 oz Weight 197 lb 6.4 oz Weight 180 lb Physical Exam 2 Narrative: General: No acute distress, awake alert oriented x 3 Skin: Minimal induration and erythema surrounding left gluteal incision, some exudate Data 04/27/23 05:09 04/27/23 05:09 Micro: Microbiology 04/25/23 11:15 Gram Stain - Final Buttock Anaerobic Culture - Preliminary Wound Culture - Preliminary 04/25/23 07:34 Blood Culture - Preliminary Blood NEGATIVE TO DATE 04/25/23 07:34 Blood Culture - Preliminary Blood NEGATIVE TO DATE A&P Assessment and plan (1) Perirectal abscess: Plan Pain control IV antibiotics Packing changed today Going to keep her 1 more day due to her high white count Daily dressing changes and likely discharge home tomorrow Attestations 2 Medical Necessity Statement*: Patient requires overnight in the hospital for IV antibiotics due to high leukocytosis and need for dressing changes to perirectal abscess status post incision and drainage Coding Level of Care Code 36915 Diagnoses Perirectal abscess K61.1
[2023-04-26] MEDS: HYDROmorphone 1 mg/mL INJ 1 mL IVP (14:54)
[2023-04-27] VITALS: BP 87/54; PULSE 68; RESP 17; TEMP 36.4; O2SAT 97
[2023-04-27] MEDS: ketorolac 30 mg/mL INJ IVP (02:05)
[2023-04-27 04:00] VITALS: BP 90/57; PULSE 66; RESP 17; TEMP 36.7; O2SAT 96
[2023-04-27] MEDS: D5-NS 0.45% + KCL 20 mEq 20 MEQ/1,000 ML BAG 100 MEQ IV (05:00)
[2023-04-27 05:36] LABS: Basophils % 0.1 %; Eosinophils # 0.1 10^3/uL (0.0-0.8); Eosinophils % 0.5 %; Hematocrit 31.5 % (36-47); Lymphocytes # 4.3 10^3/uL (1.5-6.5); Lymphocytes % 25.8 %; Mean Corpuscular HGB Conc 32.7 g/dL (30-55); Mean Corpuscular Hemoglobin 29.1 pg (27-33); Mean Platelet Volume 10.1 fL (7.4-10.4); Monocytes % 6.2 %; Neutrophils # 10.85 10^3/uL (1.8-8.0); Neutrophils % 65.8 %; Nucleated Red Blood Cells % 0 %; Platelet Count 286 10^3/cmm (157-399); Red Blood Count 3.54 10^6/uL (3.85-5.65); Red Cell Distribution Width 12.6 % (12.1-15.1); White Blood Count 16.53 10^3/uL (4.5-13.0)
[2023-04-27 06:14] LABS: Anion Gap 12.2 (5-19); Blood Urea Nitrogen 10 mg/dL (6-20); Calcium 7.8 mg/dL (8.5-10.5); Carbon Dioxide 23 mmol/L (22-29); Chloride 108 mmol/L (98-107); Glomerular Filtration Rate 157.3 mL/min (90-130); Glucose 84 mg/dL (65-115); Osmolality Calculated 286 mOsm/kg (285-295); Potassium 4.2 mmol/L (3.5-5.1); Sodium 139 mmol/L (136-145)
[2023-04-27 07:19] VITALS: BP 92/59; PULSE 85; RESP 17; TEMP 36.8; O2SAT 97
--- NOTE | 2023-04-27 08:13 | PM.DCS ---
Discharge Providers Date of Admission: 04/25/23 12:10 Date of Discharge: April 27, 2023 Attending Provider at Admission: Lance Carter DO Attending Provider at Discharge: Lance Carter DO Primary Care Provider: Jasmin Knapp APN Diagnoses at Discharge Discharge Diagnosis (1) Perirectal abscess: Status: Acute Reason for Visit Reason for Visit: pain on bottom Hospital Course Hospital Course This very pleasant 22-year-old female who presents to the hospital with a perirectal abscess. She underwent incision and drainage. On postoperative day #1 she had leukocytosis with a white count of 29. She stayed an extra day for IV antibiotics and dressing changes. She was discharged home in good condition Physical Exam Narrative: General : Patient is well developed , no acute distress, oriented x3 Head : Normal cephalic, a-traumatic. Ears : Pinnae and external canal are normal. Hearing is normal. Eyes : PERRLA, Sclera and injection are normal. No conjunctival discharge. Nose : Mucous membranes are without erythema. Throat : buccal mucosa is normal, gums are without significant recession or hypertrophy. Lungs : Equal chest rise bilaterally, no use of accessory muscles, trachea is midline. Cor : Rate and rhythm are normal. Abdomen : Soft, ND, NT, no g/r/m skin: Skin: Minimal erythema and induration surrounding left gluteal incision Extremities : No edema, no cyanosis or clubbing, dorsalis pedis pulses are present bilaterally, non-tender to palpation of calves. Upper extremities are normal bilaterally. Back : non-tender to palpation, no CVA tenderness. Neuro : CN II - XII intact, Upper and lower extremities have equal and full strength Discharge Data Studies Completed and Pending Completed Studies During Hospitalization Category Date Time Status CT pelvis w con* [id number] Stat Cat Scan 04/25/23 06:55 Completed Pending at discharge Category Date Time Status Anaerobic Culture Routine Lab 04/25/23 11:15 Results Basic Metabolic Panel AM LABS Lab 04/28/23 04:00 Ordered Blood Culture Stat Lab 04/25/23 07:34 Results Complete Blood Count w/Auto AM LABS Lab 04/28/23 04:00 Ordered Magnesium AM LABS Lab 04/28/23 04:00 Ordered Wound Culture and Gram Stain Routine Lab 04/25/23 11:15 Results Laboratory Results WBC 16.53 10^3/uL (4.5-13.0) H 04/27/23 05:09 RBC 3.54 10^6/uL (3.85-5.65) L 04/27/23 05:09 Hgb 10.30 g/dL (12.4-14.8) L 04/27/23 05:09 Hct 31.5 % (36-47) L 04/27/23 05:09 MCV 89.0 fl (85-98) 04/27/23 05:09 MCH 29.1 pg (27-33) 04/27/23 05:09 MCHC 32.7 g/dL (30-55) 04/27/23 05:09 RDW 12.6 % (12.1-15.1) 04/27/23 05:09 Plt Count 286 10^3/cmm (157-399) 04/27/23 05:09 MPV 10.1 fL (7.4-10.4) 04/27/23 05:09 Neut % (Auto) 65.8 % 04/27/23 05:09 Lymph % (Auto) 25.8 % 04/27/23 05:09 [place] % (Auto) 6.2 % 04/27/23 05:09 Eos % (Auto) 0.5 % 04/27/23 05:09 Baso % (Auto) 0.1 % 04/27/23 05:09 Neut # (Auto) 10.85 10^3/uL (1.8-8.0) H 04/27/23 05:09 Lymph # (Auto) 4.3 10^3/uL (1.5-6.5) 04/27/23 05:09 [place] # (Auto) 1.0 10^3/uL (0.2-0.9) H 04/27/23 05:09 Eos # (Auto) 0.1 10^3/uL (0.0-0.8) 04/27/23 05:09 Baso # (Auto) 0.0 10^3/uL (0.0-0.1) 04/27/23 05:09 Nucleated RBC % (auto) 0 % 04/27/23 05:09 Nucleated RBCs # 0.0 /100WBC 04/27/23 05:09 Sodium 139 mmol/L (136-145) 04/27/23 05:09 Potassium 4.2 mmol/L (3.5-5.1) 04/27/23 05:09 Chloride 108 mmol/L (98-107) H 04/27/23 05:09 Carbon Dioxide 23 mmol/L (22-29) 04/27/23 05:09 Anion Gap 12.2 (5-19) 04/27/23 05:09 BUN 10 mg/dL (6-20) 04/27/23 05:09 Creatinine 0.5 mg/dL (0.5-0.9) 04/27/23 05:09 GFR Calculation 157.3 mL/min (90-130) H 04/27/23 05:09 Glucose 84 mg/dL (65-115) 04/27/23 05:09 Calculated Osmolality 286 mOsm/kg (285-295) 04/27/23 05:09 Calcium 7.8 mg/dL (8.5-10.5) L 04/27/23 05:09 Magnesium 2.0 mg/dL (1.7-2.3) 04/27/23 05:09 Total Bilirubin 0.3 mg/dL (0.15-1.2) 04/25/23 07:00 AST 5 U/L (0-32) 04/25/23 07:00 ALT 9 U/L (0-33) 04/25/23 07:00 Alkaline Phosphatase 59 U/L (35-105) 04/25/23 07:00 Total Protein 5.7 g/dL (6.6-8.7) L 04/25/23 07:00 Albumin 3.3 g/dL (3.5-5.2) L 04/25/23 07:00 Globulin 2.4 g/dL (1.3-4.6) 04/25/23 07:00 HCG, Qual Negative (Negative) 04/25/23 07:00 Procedures Performed Incision and drainage of perirectal abscess Vitals Last Vital Signs Temp 98.3 F 04/27/23 07:19 Pulse 85 04/27/23 07:19 Resp 17 04/27/23 07:19 BP 92/59 04/27/23 07:19 Pulse Ox 97 04/27/23 07:19 O2 Del Method Room Air 04/27/23 07:19 Discharge Plan Discharge Patient Disposition: Home Condition: Stable Prescriptions: New hydrocodone-acetaminophen 7.5-325 mg tablet 1 tab PO Q6H PRN (Reason: pain) Qty: 20 0RF Colace 100 mg capsule 100 mg PO BID Qty: 14 0RF amoxicillin-pot clavulanate 875-125 mg tablet 1 tab PO BID Qty: 20 0RF Continued ibuprofen 800 mg Tablet 800 mg PO Q8H PRN (Reason: Pain) albuterol sulfate 2.5 mg /3 mL (0.083 %) solution for nebulization 3 mg inhalation QID PRN (Reason: Shortness Of Breath) codeine-guaifenesin 10-100 mg/5 mL liquid 10 ml PO Q4H PRN (Reason: Cough) albuterol sulfate [Ventolin HFA] 90 mcg/actuation HFA aerosol inhaler 2 puff INHALATION QID Discontinued sulfamethoxazole-trimethoprim 800-160 mg tablet 1 tab PO Q12H 10 Days Qty: 20 0RF Discharge Orders: Discharge Order (Routine); Ordered 04/27/23 Ordered By: Lance Carter Referrals: Jasmin Knapp APN [Primary Care Provider] - 4-7 days Lance Carter DO [Physician] - 2 weeks Discharge Diet: Advance as tolerated Discharge Activity: Resume usual activity Patient Instructions: Opioid Safety Activity Restrictions/Additional Instructions: Change dressing daily with half-inch plain packing by 4 x 4 gauze then ABD pad and tape. Do not soak underwater until healed. Shower daily Discharge Attestations Time Spent in Discharge Care*: less than 30 min Quality Metrics Clinical Quality Measures [ No reported AMI, CVA or VTE this stay] Coding Level of Care Code Acute Code for Chg Fwd Diagnoses Perirectal abscess K61.1
[2023-04-27] MEDS: docusate sodium 100 mg Capsule PO (09:21)
[2023-04-27 09:22] VITALS: RESP 18
[2023-04-27] MEDS: oxyCODONE-APAP 5-325 mg Tablet 1 TAB PO (09:22)
[2023-04-27] MEDS: ketorolac 10 mg Tablet PO (09:55)
--- NOTE | 2023-04-27 11:23 | PC.NURSE ---
Discharge Note Patient discharged to home via private vehicle accompanied by mother. Discharge instructions reviewed with patient and/or hostess party sales representative. Mobile pharmacy medications and/or prescriptions provided. Belongings/home medications returned. Educated patient and mother on dressing change and signs and symptoms to call the doctor after discharge. No further questions at this time. IV discontinued applied 2x2 and coban.
[2023-04-27 11:25] VITALS: BP 92/59; PULSE 85; RESP 18; TEMP 36.8; O2SAT 97
== END 2023-04-27 11:27 | disposition home or self-care (01) ==
LOC: ER 08:39 → OR 10:04 → MEDSURG 15:51
PROVIDERS: Admitting Provider Surgery; Emergency Provider Family Medicine; PCP Nurse Practitioner Family; Visit Provider Surgery
PROC: (CPT 46040; principal; 2023-04-25 14:40)
DX: K61.1 Rectal abscess (principal)
CPT/HCPCS: 46040; 36415; 72193; 80048; 80053; 83735; 84703; 85025; 87040; 87070; 87075; 87077; 87205; 96365; 99285; G0378; J0131; J1100; J1170; J1885; J2405; J2543; J3010; Q9967

== ENCOUNTER 2023-06-15 14:32 | Emergency (ER) | payer MEDICAID, SELFPAY ==
[2023-06-15 14:39] VITALS: BP 134/89; PULSE 97; RESP 17; TEMP 36.7; O2SAT 98; BMI 31.6
[2023-06-15 15:43] LABS: Basophils # 0.1 10^3/uL (0.0-0.1); Basophils % 0.7 %; Eosinophils # 0.2 10^3/uL (0.0-0.8); Eosinophils % 1.5 %; Hematocrit 36.5 % (36-47); Lymphocytes # 2.6 10^3/uL (1.5-6.5); Lymphocytes % 24.4 %; Mean Corpuscular Hemoglobin 29.8 pg (27-33); Mean Corpuscular Volume 87.7 fl (85-98); Mean Platelet Volume 10.4 fL (7.4-10.4); Monocytes # 0.6 10^3/uL (0.2-0.9); Monocytes % 5.5 %; Neutrophils # 7.26 10^3/uL (1.8-8.0); Neutrophils % 67.7 %; Nucleated Red Blood Cells % 0 %; Platelet Count 256 10^3/cmm (157-399); Red Blood Count 4.16 10^6/uL (3.85-5.65); Red Cell Distribution Width 12.9 % (12.1-15.1); White Blood Count 10.72 10^3/uL (4.5-13.0)
[2023-06-15 15:51] LABS: HCG, Serum Qual Negative (Negative)
[2023-06-15 15:58] LABS: Alanine Aminotransferase 18 U/L (0-33); Albumin Level 4.2 g/dL (3.5-5.2); Alkaline Phosphatase 59 U/L (35-105); Anion Gap 14.8 (5-19); Aspartate Amino Transferase 14 U/L (0-32); Blood Urea Nitrogen 8 mg/dL (6-20); Carbon Dioxide 24 mmol/L (22-29); Chloride 105 mmol/L (98-107); Creatinine Clr Calc Pharmacy 194.5741; Globulin 2.6 g/dL (1.3-4.6); Glomerular Filtration Rate 157.3 mL/min (90-130); Glucose 94 mg/dL (65-115); Osmolality Calculated 288 mOsm/kg (285-295); Potassium 3.8 mmol/L (3.5-5.1); Sodium 140 mmol/L (136-145); Total Bilirubin 0.5 mg/dL (0.15-1.2); Total Protein 6.8 g/dL (6.6-8.7)
[2023-06-15 16:16] VITALS: BP 144/99; PULSE 86; RESP 17; O2SAT 95
--- NOTE | 2023-06-15 16:23 | CTR_ITS ---
PROCEDURE INFORMATION: Exam: CT Abdomen And Pelvis With Contrast Exam date and time: 06/15/2023 4:50 PM Age: 22 years old Clinical indication: Condition or disease; Other: PT reports having surgery on 04/24 on an abcess on the right side of her bottom. PT reports feeling some puss around the incision site and having more increased pain. 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 Sagittal and coronal reformatted images were created and reviewed. Radiation optimization: All CT scans at this facility use at least one of these dose optimization techniques: automated exposure control; mA and/or kV adjustment per patient size (includes targeted exams where dose is matched to clinical indication); or iterative reconstruction. Contrast material: OMNI 350; Contrast volume: 100 ml; Contrast route: INTRAVENOUS (IV); COMPARISON: 1. CT pelvis w con* [id number] 04/25/2023 7:[address] abdomen pelvis w con* [id number] 12/28/2018 3:56 AM RADIATION DOSE METRICS: Total DLP (mGy-cm): 960.93 FINDINGS: Lungs: Visualized lungs are clear. Pleural spaces: No pleural effusion. Heart: Visualized portions of the heart are unremarkable. Liver: The liver is unremarkable. Gallbladder and bile ducts: The gallbladder is unremarkable. No biliary ductal dilatation. Pancreas: The pancreas is unremarkable. No pancreatic ductal dilatation. Spleen: The spleen is unremarkable. Adrenal glands: The right and left adrenal glands are unremarkable. Kidneys and ureters: The right kidney is unremarkable. Stable subcentimeter hypodense focus in the left kidney that is too small to characterize, however likely represents a small cyst. Stomach and bowel: No obstruction. No mucosal thickening. Appendix: The appendix is visualized and is unremarkable. No findings to suggest acute appendicitis. Intraperitoneal space: No free intraperitoneal air. No ascites. No loculated fluid collections to suggest an abscess. Vasculature: No evidence for aortic aneurysm or aortic dissection. Incidental note of a retroaortic left renal vein. Hepatic veins, portal veins, splenic vein, and SMV are patent. Lymph nodes: No lymphadenopathy. Urinary bladder: Unremarkable as visualized. Reproductive: There is an arcuate uterus. Interval development of a 2.3 x 2.4 cm dominant follicle in the right ovary and a 2.0 x 2.8 cm dominant follicle in the left ovary (series 3, images 72 and 75). Previously demonstrated degenerating cyst in the left ovary has resolved. Bones/joints: No acute fracture. Soft tissues: Interval resolution of the large subcutaneous abscess and near-complete resolution of inflammation along the left gluteal fold. There is redemonstration of a small fistulous tract extending from the left perianal region inferiorly of move left subcutaneous tissues to the skin of the left gluteal fold however (series 3, images 92-103). CT/CT abdomen pelvis w con* [id number] IMPRESSION: 1. Interval resolution of the large subcutaneous abscess and near-complete resolution of inflammation along the left gluteal fold. There is redemonstration of a small fistulous tract extending from the left perianal region inferiorly of move left subcutaneous tissues to the skin of the left gluteal fold however. 2. Interval development of dominant follicles in the right and left ovaries. 3. Previously demonstrated degenerating cyst in the left ovary has resolved.
--- NOTE | 2023-06-15 16:26 | ED_ITS ---
HPI - Wound/Laceration 2 General: Chief Complaint: Wound/Laceration Stated Complaint: sent by Raul,infected wound,surgery 04/24 Time Seen by Provider: 06/15/23 16:09 History of Present Illness: 22-year-old female with history of surgi keisha excision of an abscess about 20 days ago. This was a perirectal abscess. Apparently there was a small fistula. Today she had some pus on her buttocks and was concerned that this may be occurring again. She called the surgeon's office and they set up an appointment on the which is almost 2 weeks away and said that if she felt necessary should come to emergency room so she did. No fevers. No rectal pain. Review of Systems 2 Narrative: Constitutional symptoms: Negative except as documented in HPI. Skin symptoms: Negative except as documented in HPI. Eye symptoms: Negative except as documented in HPI. ENMT symptoms: Negative except as documented in HPI. Respiratory symptoms: Negative except as documented in HPI. Cardiovascular symptoms: Negative except as documented in HPI. Gastrointestinal symptoms: Negative except as documented in HPI. Genitourinary symptoms: Negative except as documented in HPI. Musculoskeletal symptoms: Negative except as documented in HPI. Neurologic symptoms: Negative except as documented in HPI. Psychiatric symptoms: Negative except as documented in HPI. Endocrine symptoms: Negative except as documented in HPI. Physical Exam 2 Narrative: EXAM NARRATIVE: General: Alert, no acute distress. Skin: Warm, dry. There is a perirectal scar. There is no swelling no redness no tenderness. Head: Normocephalic, atraumatic. Neck: Supple, trachea midline. Eye: Extraocular movements are intact. Ears, nose, mouth and throat: mucosa moist. Cardiovascular: Regular, Normal peripheral perfusion. Respiratory: Lungs are clear to auscultation, respirations are non-labored, breath sounds are equal, Symmetrical chest wall expansion. Gastrointestinal: Soft, Nontender, Non distended, Normal bowel sounds. Musculoskeletal: Normal ROM, no deformity. Neurological: Alert and oriented, No focal neurological deficit observed. Psychiatric: Cooperative, appropriate mood & affect. Course 2 Vital Signs: Vital signs: Vital Signs Temperature 98.0 F 06/15/23 14:39 Pulse Rate 87 06/15/23 17:00 Respiratory Rate 17 06/15/23 17:00 Blood Pressure 123/87 06/15/23 17:00 Pulse Oximetry 95 06/15/23 17:00 Oxygen Delivery Me thod Room Air 06/15/23 17:00 MDM - Wound/Laceration Medical Decision Making Medical decision making: Differential diagnosis including but not limited to and based on the above HPI, review of systems and physical exam: Concern for development of a new abscess and fistula. Basic lab work and a CT were ordered. Orders placed to evaluate differential diagnosis based on the above differential, HPI and physical exam Lab Review: Laboratory results were reviewed and interpreted by myself the emergency room physician. Lab work is unremarkable. No leukocytosis. Hemoglobin is 12.5. BUN and creatinine are [address] of the abdomen pelvis with contrast 1. Interval resolution of the large subcutaneous abscess and near-complete resolution of inflammation along the left gluteal fold. There is redemonstration of a small fistulous tract extending from the left perianal region inferiorly of move left subcutaneous tissues to the skin of the left gluteal fold however. 2. Interval development of dominant follicles in the right and left ovaries. 3. Previously demonstrated degenerating cyst in the left ovary has resolved. I reviewed the patient's medical record. Consultation: I spoke with Dr. Carter the patient surgeon. He wants to see her in clinic. There is no abscess currently but the fistula will need to be evaluated and possibly taken care of in the future. Or she has risk for repeat infection Reexamination: Patient remained stable. No increased work of breathing. No abdominal pain. No altered mental status. Lab Data 06/15/23 15:27 06/15/23 15:27 Radiology Impressions Abdomen/Pelvis CT 06/15/23 16:23 IMPRESSION: 1. Interval resolution of the large subcutaneous abscess and near-complete resolution of inflammation along the left gluteal fold. There is redemonstration of a small fistulous tract extending from the left perianal region inferiorly of move left subcutaneous tissues to the skin of the left gluteal fold however. 2. Interval development of dominant follicles in the right and left ovaries. 3. Previously demonstrated degenerating cyst in the left ovary has resolved. Laboratory Results WBC 10.72 10^3/uL (4.5-13.0) 06/15/23 15:27 RBC 4.16 10^6/uL (3.85-5.65) 06/15/23 15: Hgb 12.40 g/dL (12.4-14.8) 06/15/23 15: Hct 36.5 % (36-47) 06/15/23: MCV 87.7 fl (85-98) 06/15/23 15: MCH 29.8 pg (27-33) 06/15/23 15: MCHC 34.0 g/dL (30-55) 06/15/23 15: RDW 12.9 % (12.1-15.1) 06/15/23: Plt Count 256 10^3/cmm (157-399) 06/15/23 15: MPV 10.4 fL (7.4-10.4) 06/15/23: Neut % (Auto) 67.7 % 06/15/23: Lymph % (Auto) 24.4 % 06/15/23: [place] % (Auto) 5.5 % 06/15/23: Eos % (Auto) 1.5 % 06/15/23: Baso % (Auto) 0.7 % 06/15/23: Neut # (Auto) 7.26 10^3/uL (1.8-8.0) 06/15/23: Lymph # (Auto) 2.6 10^3/uL (1.5-6.5) 06/15/23: [place] # (Auto) 0.6 10^3/uL (0.2-0.9) 06/15/23: Eos # (Auto) 0.2 10^3/uL (0.0-0.8) 06/15/23: Baso # (Auto) 0.1 10^3/uL (0.0-0.1) 06/15/23: Nucleated RBC % (auto) 0 % 06/15/23: Nucleated RBCs # 0.0 /100WBC 06/15/23: Sodium 140 mmol/L (136-145) 06/15/23 15: Potassium 3.8 mmol/L (3.5-5.1) 06/15/23: Chloride 105 mmol/L (98-107) 06/15/23: Carbon Dioxide 24 mmol/L (22-29) 06/15/23 15:27 Anion Gap 14.8 (5-19) 06/15/23 15: BUN 8 mg/dL (6-20) 06/15/23 15: Creatinine 0.5 mg/dL (0.5-0.9) 06/15/23 15: GFR Calculation 157.3 mL/min (90-130) H 06/15/23 15: Glucose 94 mg/dL (65-115) 06/15/23 15: Calculated Osmolality 288 mOsm/kg (285-295) 06/15/23 15: Lactic Acid 2.0 mmol/L (0.5-2.2) 06/15/23 15: Calcium 9.0 mg/dL (8.5-10.5) 06/15/23 15: Total Bilirubin 0.5 mg/dL (0.15-1.2) 06/15/23 15: AST 14 U/L (0-32) 06/15/23: ALT 18 U/L (0-33) 06/15/23 15: Alkaline Phosphatase 59 U/L (35-105) 06/15/23 15: C-Reactive Protein 3.0 mg/L (0.0-4.9) 06/15/23 15: Total Protein 6.8 g/dL (6.6-8.7) 06/15/23 15: Albumin 4.2 g/dL (3.5-5.2) 06/15/23 15: Globulin 2.6 g/dL (1.3-4.6) 06/15/23 15:27 HCG, Qual Negative (Negative) 06/15/23 15:27 Urine Color Colorless (Yellow) 06/15/23 16:37 Urine Appearance Clear (CLEAR) 06/15/23 16:37 Urine pH 7 (5-7) 06/15/23 16:37 Ur Specific [place] 1.005 (1.005-1.030) 06/15/23 16:37 Urine Protein Neg (Negative) 06/15/23 16:37 Urine Glucose (UA) Norm (Normal) 06/15/23 16:37 Urine Ketones Negative (Negative) 06/15/23 16:37 Urine Blood Neg (Negative) 06/15/23 16:37 Urine Nitrate Negative (Negative) 06/15/23 16:37 Urine Bilirubin Neg (Negative) 06/15/23 16:37 Urine Urobilinogen Norm mg/dL (Negative) 06/15/23 16:37 Ur Leukocyte Esterase Negative (Negative) 06/15/23 16:37 All radiology interpretation(s) finalized by discharge Other Data Assessment and 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 Answered any questions. - Evaluation and treatment of this problem were appropriate in the emergency setting. Discharge Plan Discharge Patient Disposition: Home Clinical Impression: Fistula Condition: Stable Prescriptions: New clonidine HCl 0.1 mg tablet 0.1 mg PO Q8H PRN (Reason: hypertensive emergency) Qty: 20 0RF Rx Instructions: For Systolic >185 diastolic >100 No Action ibuprofen 800 mg Tablet 800 mg PO Q8H PRN (Reason: Pain) albuterol sulfate 2.5 mg /3 mL (0.083 %) solution for nebulization 3 mg inhalation QID PRN (Reason: Shortness Of Breath) codeine-guaifenesin 10-100 mg/5 mL liquid 10 ml PO Q4H PRN (Reason: Cough) albuterol sulfate [Ventolin HFA] 90 mcg/actuation HFA aerosol inhaler 2 puff INHALATION QID hydrocodone-acetaminophen 7.5-325 mg tablet 1 tab PO Q6H PRN (Reason: pain) Qty: 20 0RF Colace 100 mg capsule 100 mg PO BID Qty: 14 0RF amoxicillin-pot clavulanate 875-125 mg tablet 1 tab PO BID Qty: 20 0RF Discharge Orders: Discharge ED (Routine); Ordered 06/15/23 Ordered By: Jinny Villanueva Referrals: Lance Carter DO [Physician] - (Please call for follow-up. Dr. Carter will see you soon to evaluate the small fistula.) Jasmin Knapp APN [Primary Care Provider] - (You have been screened and evaluated and felt safe for discharge. Health conditions do change or evolve sometimes and as such it is important that you follow up with your Primary Doctor to be re checked, 3-5 days is a general good time frame for follow up. You are always welcome to return to the ED for re assessment if your symptoms are worsening or you have new concerns) Discharge Diet: Usual diet Discharge Activity: Resume usual activity Patient Instructions: Opioid Safety, Pain Management Coding Level of Care Code ED [employer]erg[employer] Product Tester for Gaviota Jamison
[2023-06-15 16:44] VITALS: BP 144/99; PULSE 88; RESP 16; O2SAT 95
[2023-06-15 16:45] LABS: Add Urine Microscopic? NO; Charge for UA Resulting for Rev
[2023-06-15 16:47] LABS: Bilirubin Urine Neg (Negative); Blood Urine Neg (Negative); Glucose Urine UA Norm (Normal); Ketones Urine Negative (Negative); Leukocyte Esterase Urine Negative (Negative); Nitrate Urine Negative (Negative); Protein Urine Neg (Negative); Specific Gravity, Urine 1.005 (1.005-1.030); Urine Appearance Clear (CLEAR); Urine Color Colorless (Yellow); Urobilinogen Urine Norm (Negative); pH Urine 7 (5-7)
[2023-06-15] MEDS: iohexol 350 mg/mL 500 mL Btl (per mL) IV (16:54)
[2023-06-15 17:00] VITALS: BP 123/87; PULSE 87; RESP 17; O2SAT 95
[2023-06-15 17:53] VITALS: BP 113/81; PULSE 88; RESP 17; O2SAT 98
== END 2023-06-15 18:03 | disposition home or self-care (01) ==
PROVIDERS: Nurse Practitioner Family; Emergency Provider Emergency Medicine; PCP Nurse Practitioner Family
DX: L98.8 Other specified disorders of the skin and subcutaneous tissue (principal)
CPT/HCPCS: 36415; 74177; 80053; 81003; 83605; 84703; 85025; 86140; 87040; 99285; Q9967

== ENCOUNTER → 2023-06-27 14:23 | Outpatient (BNVA) | payer MEDICAID, SELFPAY | PROVIDERS: PCP Nurse Practitioner Family; Visit Provider Nurse Practitioner Women's Health | DX: N91.2 Amenorrhea, unspecified (principal) | CPT/HCPCS: 81025; 83036; 83525; 84146; 84402; 84439; 84443; 84481 ==

== ENCOUNTER → 2023-07-11 11:30 | Outpatient (BNVA) | payer MEDICAID, SELFPAY | PROVIDERS: PCP Nurse Practitioner Family; Visit Provider Nurse Practitioner Women's Health | DX: E28.2 Polycystic ovarian syndrome (principal) | CPT/HCPCS: 83520 ==

== ENCOUNTER 2023-12-25 15:29 | Emergency (ER) | payer MEDICAID, SELFPAY ==
[2023-12-25 15:36] VITALS: BP 119/84; PULSE 88; RESP 20; TEMP 36.7; O2SAT 96; BMI 31.6
--- NOTE | 2023-12-25 15:37 | ECG_ITS ---
[facility] Test Date: 2023-12-25 Pat Name: Joy Olivera Department: Room: Gender: Female Compensation And Benefits Administrator: : 2000 Requested By: Zhanna Ferreira Order Number: [id number] Stephanie MD: Ghassan Lugo M.D. Measurements Intervals [place] Rate: 99 P: 31 [place]: 154 QRS: 48 QRSD: 82 T: 10 QT: 351 QTc: 451 Interpretive Statements SINUS RHYTHM Compared to ECG 02/19/2023 21:58:49 Sinus arrhythmia no longer present Electronically Signed On 12-28-2023 21:39:15 ALLIGATOR TRAPPER by Ghassan Lugo M.D. [email or web address]
--- NOTE | 2023-12-25 15:37 | XR_ITS ---
WS: [id number] XR chest 1V portable [id number] REASON FOR EXAM: cp FINDINGS: Chest is unchanged compared to 02/19/2023. The heart and mediastinum are within normal limits. Calcified granulomas disease is seen bilaterally. No acute pulmonary parenchymal or pleural abnormalities noted. No lung nodule or lung mass is identified. No significant abnormality of the bony thorax. XR/XR chest 1V portable [id number] IMPRESSION: Stable chest without acute abnormality.
== END 2023-12-25 19:08 | disposition left against medical advice (07) ==
PROVIDERS: Emergency Provider Family Medicine; PCP Nurse Practitioner Family
DX: Z53.21 Procedure and treatment not carried out due to patient leaving prior to being seen by health care provider (principal)
CPT/HCPCS: 71045; 93005

== ENCOUNTER → 2024-02-21 15:30 | Outpatient (BNVA) | payer MEDICAID, SELFPAY | PROVIDERS: PCP Nurse Practitioner Family; Visit Provider Nurse Practitioner | DX: N15.9 Renal tubulo-interstitial disease, unspecified (principal); N23 Unspecified renal colic; R30.0 Dysuria | CPT/HCPCS: 81000; 87086 ==

== ENCOUNTER 2024-11-29 18:45 | Emergency (ER) | payer MEDICAID, SELFPAY ==
[2024-11-29 18:47] VITALS: BP 127/85; PULSE 91; RESP 18; TEMP 36.9; O2SAT 97
--- NOTE | 2024-11-29 18:55 | ECG_ITS ---
[facility] Date: 2024-11-29 Pat Name: Joy Olivera Department: Room: Gender: Female Form Setter: : 2000 Requested By: Hermes Morse Order Number: [id number] Stephanie MD: BAHMAN SANCHEZ Measurements Intervals [place] Rate: 100 P: 37 [place]: 146 QRS: 33 QRSD: 85 T: 28 QT: 329 QTc: 426 Interpretive Statements SINUS TACHYCARDIA ABNORMAL RHYTHM ECG Compared to ECG 12/25/2023 15:31:59 Sinus rhythm no longer present Electronically Signed On 12-01-2024 23:24:52 CDT by BAHMAN SANCHEZ [id number]
--- NOTE | 2024-11-29 18:55 | XRR_ITS ---
PROCEDURE INFORMATION: Exam: XR Chest Exam date and time: 11/29/2024 7:16 PM Age: 24 years old Clinical indication: Pain; Chest pressure; Additional info: Chest pain TECHNIQUE: Imaging protocol: Radiologic exam of the chest. Views: 1 view. COMPARISON: CR XR chest 1V portable [id number] 12/25/2023 3:42 PM FINDINGS: Lungs: Unremarkable. No consolidation. Pleural spaces: Unremarkable. No pleural effusion. No pneumothorax. Heart/Mediastinum: Unremarkable. No cardiomegaly. Bones/joints: Unremarkable. Few scattered calcified granulomas. XR/XR chest 1V portable [id number] IMPRESSION: No acute findings.
[2024-11-29 19:54] LABS: Troponin(5th) Baseline < 6 ng/L (0-10)
[2024-11-29 19:55] LABS: Alanine Aminotransferase 22 U/L (0-33); Albumin Level 4.8 g/dL (3.5-5.2); Alkaline Phosphatase 65 U/L (35-105); Blood Urea Nitrogen 9 mg/dL (6-20); Calcium 10.0 mg/dL (8.5-10.5); Carbon Dioxide 19 mmol/L (22-29); Chloride 106 mmol/L (98-107); Creatinine Clr Calc Pharmacy 129.4435; Globulin 2.2 g/dL (1.3-4.6); Glucose 103 mg/dL (65-115); Osmolality Calculated 291 mOsm/kg (285-295); Sodium 141 mmol/L (136-145); Total Protein 7.0 g/dL (6.6-8.7)
[2024-11-29 20:06] LABS: Anion Gap 20.0 (5-19); Aspartate Amino Transferase 19 U/L (0-32); Potassium 4.0 mmol/L (3.5-5.1)
[2024-11-29 20:11] LABS: Hematocrit 39.7 % (36-47); Hemoglobin 13.60 g/dL (11.27-16.99); Mean Corpuscular HGB Conc 34.3 g/dL (30-55); Mean Corpuscular Hemoglobin 29.8 pg (27-33); Mean Corpuscular Volume 87.1 fl (85-98); Nucleated Red Blood Cells % 0 %; Platelet Count 323 10^3/cmm (157-399); Red Blood Count 4.56 10^6/uL (3.85-5.65); White Blood Count 14.15 10^3/uL (3.29-11.43)
[2024-11-29 21:34] LABS: Troponin 5 2HR 7.18 ng/L (0-10); Troponin 5 2HR Delta 1.18001 ABS# (0-10)
[2024-11-29 21:36] VITALS: BP 104/71; PULSE 73; RESP 18; O2SAT 98
[2024-11-29 22:00] VITALS: BP 104/71; PULSE 72; O2SAT 98
--- NOTE | 2024-11-29 22:03 | ED_ITS ---
Documented by User: CESILIA Steiner 11/30/24 00:52 HPI - Chest Pain 2 General: Chief Complaint: Chest Pain Stated Complaint: Chest Pain Time Seen by Provider: 11/29/24 21:08 Source: patient Mode of arrival: ambulatory Limitations: no limitations History of Present Illness: Patient is a 24-year-old female who presents to the emergency department complaining of chest pain and shortness of breath that began earlier this morning. States that started on 0800, she was not significantly exerting herself. She notes significant stress with life lately in regards to her job, thinks this might be the cause. No pertinent cardiac history or history of similar issues. She notes that the pain is left-sided but radiates substernally, as well as to her jaw and bilateral upper extremities. She states that she is supposed to take control but does not, she is not tachycardic at this time. No nausea or vomiting, lightheadedness or dizziness, syncopal episodes, vaginal bleeding, or other symptoms reported at this time. Vitals are stable. She states her symptoms have currently resolved. MD complaint: chest pain Onset (ago): hour(s) Timing of current episode: now resolved Prior episodes: No Onset: during rest Pain location: left chest Pain radiation: right arm, left arm, neck and jaw/teeth Associated symptoms: Reports dyspnea; Deny abdominal pain, fever(s), nausea, palpitations or vomiting Related Data Home Medications ?Medication ?Instructions ?Recorded ?Confirmed albuterol sulfate 2.5 mg/3 mL 3 mg inhalation QID PRN Shortness 04/25/23 02/21/24 (0.083 %) solution for nebulization Of Breath albuterol sulfate 90 mcg/actuation 2 puff inhalation Q ID shortness of 04/25/23 02/21/24 aerosol inhaler (Ventolin HFA) breath Previous Rx's ?Medication ?Instructions ?Recorded drospirenone 3 mg-ethinyl 1 tab PO DAILY #28 tabs 06/22 estradiol 0.02 mg tablet (TWILA (28)) Allergies Allergy/AdvReac Type Severity Reaction Status Date / Time Cephalosporins Allergy ALGY-Hives Verified 02/21/24 13:33 latex Allergy ALGY-Bliste Verified 02/21/24 13:33 r Review of Systems 2 General: Reports: 10 or more systems reviewed and unremarkable except in HPI and below Const: Denies: fever(s), chills or fatigue Eyes: Denies: change in vision ENMT: Denies: throat pain, ear or mastoid pain or nasal discharge Card: Reports: chest pain; Denies: palpitations, swelling of feet/ankles or lightheadedness Resp: Reports: dyspnea; Denies: productive cough or wheezing GI: Denies: abdominal pain, nausea, vomiting, diarrhea or constipation : Denies: flank pain, difficulty voiding, dysuria or urinary frequency Musc: Reports: neck pain and extremity pain; Denies: back pain or joint pain Skin/Breast: Denies: rash Neuro: Denies: headache(s), numbness in extremities or weakness in extremities PFSH ED 2 PFSH: Social History Smoking and tobacco/nicotine status: never used tobacco/nicotine Physical Exam 2 Const: COMMON NORMALS: no acute distress, patient oriented x3 and no limitations GENERAL APPEARANCE: cooperative, comfortable and well developed ORIENTATION/CONSCIOUSNESS: Yes awake, Yes oriented to person, Yes oriented to place and Yes oriented to time HENMT: COMMON NORMALS: normocephalic, atraumatic and hearing grossly normal bilaterally HEAD & SCALP: normocephalic and atraumatic Eye: COMMON NORMALS: Equal, round and reactive pupils present, EOMs intact bilaterally and conjunctivae normal CONJUNCTIVA: Yes conjunctivae normal P UPIL: Yes Equal, round and reactive pupils present Neck/C-Spine: COMMON NORMALS: full ROM, supple and no JVD Resp: COMMON NORMALS: normal respiratory effort, No retractions, No use of accessory muscles and clear to auscultation bilaterally AUSCULTATION: clear to auscultation bilaterally Cardio: COMMON NORMALS: no JVD, regular rate, regular rhythm, No clicks present (Cardio), No murmurs present (Cardio) and No rub (Cardio) RATE: r egular rate RHYTHM: regular rhythm GI: COMMON NORMALS: Normal to inspection, nondistended, normoactive bowel sounds present, Soft to palpation and non-tender AUSCULTATION: Yes normoactive bowel sounds PALPATION: Yes Soft to palpation RECTAL EXAM: d eferred Extremity: COMMON NORMALS: normal to inspection, full ROM and capillary refill normal Neuro: COMMON NORMALS: patient oriented x3, moves all extremities, no focal motor deficits and no sensory deficits noted SENSORIUM/ORIENTATION: Yes oriented to person, Yes oriented to place and Yes oriented to time Skin: COMMON NORMALS: no rashes or lesions noted GENERAL SKIN EXAM: no rashes or lesions noted Course 2 Vital Signs: Vital signs: Vital Signs Temperature 98.5 F 11/29/24 18:47 Pulse Rate 70 11/29/24 22:15 Respiratory Rate 18 11/29/24 21:36 Blood Pressure 116/75 11/29/24 22:15 Pulse Oximetry 100 11/29/24 22:15 Oxygen Delivery Me thod Room Air 11/29/24 22:00 MDM - Chest Pain Medical Decision Making Patient presenting with chest pain and shortness of breath beginning this morning but resolved at my time of examination. No pertinent cardiac history. Vitals have been stable throughout ED stay and her physical exam was normal. No comorbid conditions. Heart rate has been normal specifically. Chest x-ray normal. All of her lab work normal including normal initial and 2-hour troponin. EKG showing no acute rhythm changes. Suspect this is anxiety related and not ACS, though she is instructed follow-up with primary care for further outpatient management as she continues to have chest pain she may warrant echocardiogram, stress test, Holter monitor, or combination. Regardless she is safe for discharge home and given general return precautions. Lab Data 11/29/24 19:10 11/29/24 19:10 Radiology Impressions Chest X-Ray 11/29/24 18:55 IMPRESSION: No acute findings. Laboratory Results WBC 14.15 10^3/uL (3.29-11.43) H 11/29/24 19:10 RBC 4.56 10^6/uL (3.85-5.65) 11/29/24 19:10 Hgb 13.60 g/dL (11.27-16.99) 11/29/24 19:10 Hct 39.7 % (36-47) 11/29/24 19:10 MCV 87.1 fl (85-98) 11/29/24 19:10 MCH 29.8 pg (27-33) 11/29/24 19:10 MCHC 34.3 g/dL (30-55) 11/29/24 19:10 RDW 12.3 % (12.1-15.1) 11/29/24 19:10 Plt Count 323 10^3/cmm (157-399) 11/29/24 19:10 MPV 10.8 fL (7.4-10.4) H 11/29/24 19:10 Neut % (Auto) 64.8 % 11/29/24 19:10 Lymph % (Auto) 27.4 % 11/29/24 19:10 Hall % (Auto) 5.6 % 11/29/24 19:10 Eos % (Auto) 1.3 % 11/29/24 19:10 Baso % (Auto) 0.6 % 11/29/24 19:10 Neut # (Auto) 9.17 10^3/uL (1.8-7.7) H 11/29/24 19:10 Lymph # (Auto) 3.9 10^3/uL (0.8-4.8) 11/29/24 19:10 Hall # (Auto) 0.8 10^3/uL (0.2-0.9) 11/29/24 19:10 Eos # (Auto) 0.2 10^3/uL (0.0-0.8) 11/29/24 19:10 Baso # (Auto) 0.1 10^3/uL (0.0-0.1) 11/29/24 19:10 Nucleated RBC % (auto) 0 % 11/29/24 19:10 Nucleated RBCs # 0.0 /100WBC 11/29/24 19:10 Sodium 141 mmol/L (136-145) 11/29/24 19:10 Potassium 4.0 mmol/L (3.5-5.1) 11/29/24 19:10 Chloride 106 mmol/L (98-107) 11/29/24 19:10 Carbon Dioxide 19 mmol/L (22-29) L 11/29/24 19:10 Anion Gap 20.0 (5-19) H 11/29/24 19:10 BUN 9 mg/dL (6-20) 11/29/24 19:10 Creatinine 0.7 mg/dL (0.5-0.9) 11/29/24 19:10 GFR Calculation 104.6 mL/min (90-130) 11/29/24 19:10 Glucose 103 mg/dL (65-115) 11/29/24 19:10 Calculated Osmolality 291 mOsm/kg (285-295) 11/29/24 19:10 Calcium 10.0 mg/dL (8.5-10.5) 11/29/24 19:10 Total Bilirubin 0.5 mg/dL (0.15-1.2) 11/29/24 19:10 AST 19 U/L (0-32) 11/29/24 19:10 ALT 22 U/L (0-33) 11/29/24 19:10 Alkaline Phosphatase 65 U/L (35-105) 11/29/24 19:10 Troponin T Baseline < 6 ng/L (0-10) 11/29/24 19:10 Troponin T 120 Minute 7.18 ng/L (0-10) 11/29/24 21:04 Delta Troponin T 1.22538 ABS# (0-10) 11/29/24 21:04 Total Protein 7.0 g/dL (6.6-8.7) 11/29/24 19:10 Albumin 4.8 g/dL (3.5-5.2) 11/29/24 19:10 Globulin 2.2 g/dL (1.3-4.6) 11/29/24 19:10 All radiology interpretation(s) finalized by discharge Discharge Plan Discharge Patient Disposition: Home Clinical Impression: Anxiety Chest pain Qualifiers: Chest pain type: unspecified Qualified Code(s): R07.9 - Chest pain, unspecified Condition: Stable Prescriptions: No Action drospirenone-ethinyl estradiol [TWILA (28)] 3-0.02 mg tablet 1 tab PO DAILY Qty: 28 0RF albuterol sulfate 2.5 mg /3 mL (0.083 %) solution for nebulization 3 mg inhalation QID PRN (Reason: Shortness Of Breath) albuterol sulfate [Ventolin HFA] 90 mcg/actuation HFA aerosol inhaler 2 puff INHALATION QID Discharge Orders: Discharge ED (Routine); Ordered 11/29/24 Ordered By: Gallo Horner Referrals: Knapp,Jasmin, BRAZING MACHINE OPERATOR [Primary Care Provider, Nurse Practitioner] Patient Instructions: Patient Portal & Dalia Instructions Activity Restrictions/Additional Instructions: Noncardiac Chest Pain Discharge You were evaluated in the emergency department for chest pain. After a thorough assessment?including blood tests, an electrocardiogram (ECG), and a chest X- ray?no evidence of heart attack or other life-threatening conditions was found. Your results were normal, and your chest pain is considered noncardiac at this time. What to expect next: - Most chest pain in young adults is not caused by heart problems. Common causes include muscle strain, acid reflux, anxiety, or other kax-aqrcc-ilbwkni issues. - You will be referred to your primary care provider for further evaluation and management. Please schedule a follow-up appointment within the next 1-2 weeks, or sooner if your provider recommends. When to seek immediate care: Return to the emergency department or call 911 if you experience any of the following: - Chest pain that is severe, lasts more than a few minutes, or comes with shortness of breath, fainting, sweating, nausea, or vomiting. - Pain that spreads to your jaw, neck, back, or arms. - New or worsening symptoms, such as trouble breathing, rapid heartbeat, or feeling lightheaded. Self-care tips: - Rest and avoid strenuous activity until you follow up with your provider. - If you notice that certain activities or foods trigger your pain, keep a record to discuss at your next visit. - If you feel anxious or stressed, consider talking to your provider about ways to manage these feelings, as anxiety can sometimes cause chest pain. Follow-up: - Your primary care provider will help determine the cause of your chest pain and recommend any further tests or treatments if needed. - If you have questions or concerns before your appointment, contact your provider. Summary: Your heart tests were normal, and you are considered low risk for heart problems. Outpatient follow-up is recommended to address other possible causes of your chest pain. Print Language: Ivorian Coding Level of Care Code ED [employer] for [facility] Fwd Heart Score HEART Score Components History: Slightly Suspicous EKG: Normal Age: Less than 45 yrs Risk Factors: No Risk Factors Known Troponin: Baseline Trop <16 ng/L HEART Score RESULT HEART Score: 0 Documented by User: Hermes Bain, DO 11/30/24 03:44 HPI - Chest Pain 2 General: Chief Complaint: Chest Pain Stated Complaint: Chest Pain Time Seen by Provider: 11/29/24 21:08 Related Data Home Medications ?Medication ?Instructions ?Recorded ?Confirmed albuterol sulfate 2.5 mg/3 mL 3 mg inhalation QID PRN Shortness 04/25/23 02/21/24 (0.083 %) solution for nebulization Of Breath albuterol sulfate 90 mcg/actuation 2 puff inhalation Q ID shortness of 04/25/23 02/21/24 aerosol inhaler (Ventolin HFA) breath Previous Rx's ?Medication ?Instructions ?Recorded drospirenone 3 mg-ethinyl 1 tab PO DAILY #28 tabs 06/22 estradiol 0.02 mg tablet (TWIAL (28)) Allergies Allergy/AdvReac Type Severity Reaction Status Date / Time Cephalosporins Allergy ALGY-Hives Verified 02/21/24 13:33 latex Allergy ALGY-Bliste Verified 02/21/24 13:33 r PFSH ED 2 [facility]: Social History Smoking and tobacco/nicotine status: never used tobacco/nicotine Course 2 Vital Signs: Vital signs: Vital Signs Temperature 98.5 F 11/29/24 18:47 Pulse Rate 70 11/29/24 22:15 Respiratory Rate 18 11/29/24 21:36 Blood Pressure 116/75 11/29/24 22:15 Pulse Oximetry 100 11/29/24 22:15 Oxygen Delivery Me thod Room Air 11/29/24 22:00 MDM - Chest Pain Medical Decision Making Patient presenting with chest pain and shortness of breath beginning this morning but resolved at my time of examination. No pertinent cardiac history. Vitals have been stable throughout ED stay and her physical exam was normal. No comorbid conditions. Heart rate has been normal specifically. Chest x-ray normal. All of her lab work normal including normal initial and 2-hour troponin. EKG showing no acute rhythm changes. Suspect this is anxiety related and not ACS, though she is instructed follow-up with primary care for further outpatient management as she continues to have chest pain she may warrant echocardiogram, stress test, Holter monitor, or combination. Regardless she is safe for discharge home and given general return precautions. This patient was originally seen by Mr. Evens PA-C. I agree with his history, evaluation, and treatment. Lab Data 11/29/24 19:10 11/29/24 19:10 Radiology Impressions Chest X-Ray 11/29/24 18:55 IMPRESSION: No acute findings. Laboratory Results WBC 14.15 10^3/uL (3.29-11.43) H 11/29/24 19:10 RBC 4.56 10^6/uL (3.85-5.65) 11/29/24 19:10 Hgb 13.60 g/dL (11.27-16.99) 11/29/24 19:10 Hct 39.7 % (36-47) 11/29/24 19:10 MCV 87.1 fl (85-98) 11/29/24 19:10 MCH 29.8 pg (27-33) 11/29/24 19:10 MCHC 34.3 g/dL (30-55) 11/29/24 19:10 RDW 12.3 % (12.1-15.1) 11/29/24 19:10 Plt Count 323 10^3/cmm (157-399) 11/29/24 19:10 MPV 10.8 fL (7.4-10.4) H 11/29/24 19:10 Neut % (Auto) 64.8 % 11/29/24 19:10 Lymph % (Auto) 27.4 % 11/29/24 19:10 Hall % (Auto) 5.6 % 11/29/24 19:10 Eos % (Auto) 1.3 % 11/29/24 19:10 Baso % (Auto) 0.6 % 11/29/24 19:10 Neut # (Auto) 9.17 10^3/uL (1.8-7.7) H 11/29/24 19:10 Lymph # (Auto) 3.9 10^3/uL (0.8-4.8) 11/29/24 19:10 Hall # (Auto) 0.8 10^3/uL (0.2-0.9) 11/29/24 19:10 Eos # (Auto) 0.2 10^3/uL (0.0-0.8) 11/29/24 19:10 Baso # (Auto) 0.1 10^3/uL (0.0-0.1) 11/29/24 19:10 Nucleated RBC % (auto) 0 % 11/29/24 19:10 Nucleated RBCs # 0.0 /100WBC 11/29/24 19:10 Sodium 141 mmol/L (136-145) 11/29/24 19:10 Potassium 4.0 mmol/L (3.5-5.1) 11/29/24 19:10 Chloride 106 mmol/L (98-107) 11/29/24 19:10 Carbon Dioxide 19 mmol/L (22-29) L 11/29/24 19:10 Anion Gap 20.0 (5-19) H 11/29/24 19:10 BUN 9 mg/dL (6-20) 11/29/24 19:10 Creatinine 0.7 mg/dL (0.5-0.9) 11/29/24 19:10 GFR Calculation 104.6 mL/min (90-130) 11/29/24 19:10 Glucose 103 mg/dL (65-115) 11/29/24 19:10 Calculated Osmolality 291 mOsm/kg (285-295) 11/29/24 19:10 Calcium 10.0 mg/dL (8.5-10.5) 11/29/24 19:10 Total Bilirubin 0.5 mg/dL (0.15-1.2) 11/29/24 19:10 AST 19 U/L (0-32) 11/29/24 19:10 ALT 22 U/L (0-33) 11/29/24 19:10 Alkaline Phosphatase 65 U/L (35-105) 11/29/24 19:10 Troponin T Baseline < 6 ng/L (0-10) 11/29/24 19:10 Troponin T 120 Minute 7.18 ng/L (0-10) 11/29/24 21:04 Delta Troponin T 1.30344 ABS# (0-10) 11/29/24 21:04 Total Protein 7.0 g/dL (6.6-8.7) 11/29/24 19:10 Albumin 4.8 g/dL (3.5-5.2) 11/29/24 19:10 Globulin 2.2 g/dL (1.3-4.6) 11/29/24 19:10 Discharge Plan Discharge Patient Disposition: Home Clinical Impression: Anxiety Chest pain Qualifiers: Chest pain type: unspecified Qualified Code(s): R07.9 - Chest pain, unspecified Condition: Stable Prescriptions: No Action drospirenone-ethinyl estradiol [TWILA (28)] 3-0.02 mg tablet 1 tab PO DAILY Qty: 28 0RF albuterol sulfate 2.5 mg /3 mL (0.083 %) solution for nebulization 3 mg inhalation QID PRN (Reason: Shortness Of Breath) albuterol sulfate [Ventolin HFA] 90 mcg/actuation HFA aerosol inhaler 2 puff INHALATION QID Discharge Orders: Discharge ED (Routine); Ordered 11/29/24 Ordered By: Gallo Horner Referrals: Jasmin Knapp APN [Primary Care Provider, Nurse Practitioner] Patient Instructions: Patient Portal & Dalia Instructions Activity Restrictions/Additional Instructions: Noncardiac Chest Pain Discharge You were evaluated in the emergency department for chest pain. After a thorough assessment?including blood tests, an electrocardiogram (ECG), and a chest X- ray?no evidence of heart attack or other life-threatening conditions was found. Your results were normal, and your chest pain is considered noncardiac at this time. What to expect next: - Most chest pain in young adults is not caused by heart problems. Common causes include muscle strain, acid reflux, anxiety, or other ond-anoxl-gldyjyd issues. - You will be referred to your primary care provider for further evaluation and management. Please schedule a follow-up appointment within the next 1-2 weeks, or sooner if your provider recommends. When to seek immediate care: Return to the emergency department or call 911 if you experience any of the following: - Chest pain that is severe, lasts more than a few minutes, or comes with shortness of breath, fainting, sweating, nausea, or vomiting. - Pain that spreads to your jaw, neck, back, or arms. - New or worsening symptoms, such as trouble breathing, rapid heartbeat, or feeling lightheaded. Self-care tips: - Rest and avoid strenuous activity until you follow up with your provider. - If you notice that certain activities or foods trigger your pain, keep a record to discuss at your next visit. - If you feel anxious or stressed, consider talking to your provider about ways to manage these feelings, as anxiety can sometimes cause chest pain. Follow-up: - Your primary care provider will help determine the cause of your chest pain and recommend any further tests or treatments if needed. - If you have questions or concerns before your appointment, contact your provider. Summary: Your heart tests were normal, and you are considered low risk for heart problems. Outpatient follow-up is recommended to address other possible causes of your chest pain. Print Language: Ivorian Coding Level of Care Code ED [employer] Con[employer] for [facility] Fwd Heart Score HEART Score RESULT HEART Score: 0
[2024-11-29 22:15] VITALS: BP 116/75; PULSE 70; O2SAT 100
== END 2024-11-29 22:17 | disposition home or self-care (01) ==
PROVIDERS: Emergency Medicine; Emergency Provider Physician Assistant; PCP Nurse Practitioner Family
DX: F41.9 Anxiety disorder, unspecified (principal); R07.9 Chest pain, unspecified
CPT/HCPCS: 36415; 71045; 80053; 84484; 85025; 93005; 99285

== ENCOUNTER → 2025-01-30 10:56 | Outpatient (BNVA) | payer MEDICAID, SELFPAY | PROVIDERS: PCP Nurse Practitioner Family; Referring Provider Nurse Practitioner Family; Visit Provider Internal Medicine Cardiovascular Disease | DX: R07.9 Chest pain, unspecified (principal) | CPT/HCPCS: 93005 ==